=== PATIENT | female | born 1965 | race Caucasian/White ===

== ENCOUNTER 2019-08-07 12:14 | Emergency (ER) | payer BC ==
--- NOTE | 2019-08-07 13:30 | EDM.PDOC ---
ED HPI GENERAL MEDICAL PROBLEM - General Chief Complaint: Cardiovascular Problem Stated Complaint: PALPATATIONS Time Seen by Provider: 08/07/19 12:20 Source of Information: Reports: Patient History Limitations: Reports: No Limitations - History of Present Illness Onset: Today Duration: Intermittent Location: Reports: Chest Quality: Reports: Pressure Severity: Moderate Improves with: Reports: None Worsens with: Reports: None Associated Symptoms: Reports: Nausea/Vomiting (Presents with palpitations. She had a history of palpitations when she was younger and had been on a beta- pari. This seemed to have helped her however she discontinued this for many years now. She comes in today having noted increasing frequency of palpitations. Noted at some yesterday and then some this morning. Associated with any activity or exercise more randomly when she is at rest. He had her daughter check her pulse this afternoon and noted that it was irregular when she noted the palpitations therefore comes in for evaluation. Patient is followed by her primary care physician Dr. Vanegas and had a work-up and evaluation in April. Does have family history cardiovascular disease. Father with a history of mitral valve disease and during open heart surgery when he was in his 80s, has had a sibling with heart problems. Sister with a history of abnormal heart rhythm requiring ablative therapy. Has had a cough off and on weeks ago but has resolved. I had intermittent headaches but have resolved. Yesterday did have a abnormal smell or taste but better today. Had some loose stool today although notes that when she has her menstrual cycle. He obvious contact with any ill people, is trying to stay at home. No increasing work of breathing shortness of breath diaphoresis fevers chills or muscle aches. I rescreened in April and was negative take vitamins and natural supplements but nothing new, she denies any illegal drug use, very rare alcohol intake, does not smoke and does drink a few cups of coffee a day.) - Related Data Allergies Allergy/AdvReac Type Severity Reaction Status Date / Time ciprofloxacin [From Cipro] Allergy Headache Verified 08/07/19 12:26 esomeprazole magnesium Allergy Cannot Verified 08/07/19 12:26 [From Nexium] Remember sulfamethoxazole Allergy Cannot Verified 08/07/19 12:26 [From Bactrim] Remember trimethoprim [From Bactrim] Allergy Cannot Verified 08/07/19 12:26 Remember Home Meds: Home Meds Orphenadrine [Norflex] 1 tab PO Q12H PRN #14 tab 12/25/18 [Rx] Vitamins And Supplements. 12/25/18 [History] Magnesium Amino Acid Chelate [Magnesium] 100 mg PO DAILY #30 tablet 08/07/19 [Rx ] Potassium Chloride [Klor-Con 10] 10 meq PO DAILY #30 tab.er 08/07/19 [Rx] Past Medical History - Past Health History Medical/Surgical History: Denies Medical/Surgical History Cardiovascular History: Reports: High Cholesterol Gastrointestinal History: Reports: PUD, Other (See Below) Other Gastrointestinal History: Gallbladder attacks Genitourinary History: Reports: Urinary Incontinence Musculoskeletal History: Reports: Arthritis Endocrine/Metabolic History: Reports: Hypothyroidism - Past Surgical History GI Surgical History: Reports: EGD Social & Family History - Tobacco Use Smoking Status *Q: Never Smoker Second Hand Smoke Exposure: No - Caffeine Use Caffeine Use: Reports: Coffee - Recreational Drug Use Recreational Drug Use: No - Living Situation & Occupation Living situation: Reports: , with Spouse, with Family (5 kids) Occupation: Unemployed ED ROS GENERAL - Review of Systems Review Of Systems: See Below Constitutional: Denies: Fever, Chills, Weakness, Night Sweats, Diaphoresis, Decreased Appetite HEENT: Reports: No Symptoms. Denies: Rhinitis, Throat Pain Respiratory: Denies: Shortness of Breath, Pleuritic Chest Pain Cardiovascular: Reports: Palpitations. Denies: Chest Pain, Dyspnea on Exertion , Lightheadedness, Orthopnea, Syncope Endocrine: Reports: No Symptoms GI/Abdominal: Reports: Diarrhea, Decreased Appetite, Nausea. Denies: Vomiting : Denies: Dysuria Musculoskeletal: Denies: Neck Pain, Arm Pain Skin: Reports: No Symptoms Neurological: Denies: Dizziness, Headache, Numbness, Paresthesia, Tingling Psychiatric: Reports: No Symptoms Immunologic: Reports: No Symptoms ED EXAM, GENERAL - Physical Exam Exam: See Below Exam Limited By: No Limitations General Appearance: Alert, WD/WN, No Apparent Distress Throat/Mouth: Normal Inspection Head: Atraumatic Neck: Normal Inspection. No: Carotid Bruit Respiratory/Chest: No Respiratory Distress, Lungs Clear, No Accessory Muscle Use Cardiovascular: Normal Peripheral Pulses, Regular Rate, Rhythm, No Edema, No JVD , No Murmur, Other. No: JVD Peripheral Pulses: 2+: Radial (L), Radial (R) GI/Abdominal: Normal Bowel Sounds, Soft, Non-Tender, No Organomegaly Back Exam: Normal Inspection Extremities: Normal Inspection, Non-Tender, No Pedal Edema Neurological: Alert, Oriented, CN II-XII Intact, No Motor/Sensory Deficits Psychiatric: Normal Affect Skin Exam: Warm, Dry EKG INTERPRETATION EKG Date: 08/07/19 Rhythm: NSR (Due to her EKG and is so signed over I reviewed EKG showing sinus rhythm rate of 81 MA 150 QRS 91 QT corrected 448, RSR prime in lead V1 and V2, no Brugada signs or symptoms, no prolonged QT syndrome no short MA or delta waves noted. Ischemic changes noted.) Course - Vital Signs Last Recorded V/S: Last Vital Signs Temp 97.2 F 08/07/19 12:22 Pulse 90 08/07/19 12:22 Resp 12 08/07/19 12:22 BP 143/61 H 08/07/19 12:22 Pulse Ox 100 08/07/19 12:22 - Orders/Labs/Meds Orders: Active Orders 24 hr Category Date Time Status EKG Documentation Completion [RC] STAT Care 08/07/19 12:44 Active Labs: Laboratory Tests 08/07/19 08/07/19 Range/Units 13:08 13:08 WBC 4.82 (3.98-10.04) K/mm3 RBC 4.18 (3.98-5.22) M/mm3 Hgb 10.4 L D (11.2-15.7) gm/dl Hct 34.6 (34.1-44.9) % MCV 82.8 D (79.4-94.8) fl MCH 24.9 L (25.6-32.2) pg MCHC 30.1 L (32.2-35.5) g/dl RDW Std Deviation 51.8 H (36.4-46.3) fL Plt Count 307 D (182-369) K/mm3 MPV 10.0 (9.4-12.3) fl Neut % (Auto) 59.1 (34.0-71.1) % Lymph % (Auto) 30.9 (19.3-51.7) % [place] % (Auto) 7.7 (4.7-12.5) % Eos % (Auto) 1.5 (0.7-5.8) Baso % (Auto) 0.6 (0.1-1.2) % Neut # (Auto) 2.85 (1.56-6.13) K/mm3 Lymph # (Auto) 1.49 (1.18-3.74) K/mm3 [place] # (Auto) 0.37 H (0.24-0.36) K/mm3 Eos # (Auto) 0.07 (0.04-0.36) K/mm3 Baso # (Auto) 0.03 (0.01-0.08) K/mm3 Sodium 142 (136-145) mEq/L Potassium 3.3 L (3.5-5.1) mEq/L Chloride 108 H (98-107) mEq/L Carbon Dioxide 23 (21-32) mEq/L Anion Gap 14.3 (5-15) BUN 10 (7-18) mg/dL Creatinine 0.8 (0.55-1.02) mg/dL Est Cr Clr Drug Dosing 75.26 mL/min Estimated GFR (MDRD) > 60 (>60) mL/min BUN/Creatinine Ratio 12.5 L (14-18) Glucose 151 H (74-106) mg/dL Calcium 8.6 (8.5-10.1) mg/dL Magnesium 1.7 L (1.8-2.4) mg/dl Total Bilirubin 0.2 (0.2-1.0) mg/dL AST 11 L (15-37) U/L ALT 23 (14-59) U/L Alkaline Phosphatase 67 (46-116) U/L Total Protein 7.0 (6.4-8.2) g/dl Albumin 3.4 (3.4-5.0) g/dl Globulin 3.6 gm/dL Albumin/Globulin Ratio 0.9 L (1-2) - Radiology Interpretation Free Text/Narrative:: Chest x-ray reviewed with radiology and is unremarkable. - Re-Assessments/Exams Free Text/Narrative Re-Assessment/Exam: 08/07/19 13:34 Patient has symptomatic what looks like PACs. There is no ventricular complexes that are irregular, no signs of any Brugada criteria or prolonged QT syndrome or short MA intervals on her EKG. Suspect patient may benefit from an echocardiogram, will screen her labs to include her electrolytes magnesium and thyroid is already been screened, blood count, chest x-ray. 08/07/19 13:35 Hemoglobin is 10.4 hematocrit is 34.6 MCV is 82 MCH is 24.9 platelet count 307, 000 she has a white count of 4800, 08/07/19 13:55 42 potassium 3.3 chloride 108 BUN is 10 creatinine 0.8 glucose 151 magnesium 1.7 AST 11 Departure - Departure Time of Disposition: 14:09 Disposition: Home, Self-Care 01 Condition: Good Clinical Impression: Palpitations, Hypokalemia, Hypomagnesemia Anemia Qualifiers: Anemia type: unspecified type Qualified Code(s): D64.9 - Anemia, unspecified Instructions: Anemia, Palpitations, Hypomagnesemia, Hypokalemia Referrals: Frank Chi MD [Primary Care Provider] - Forms: ED Department Discharge Additional Instructions: Recommend follow-up with your primary provider and consider outpatient echocardiogram, work-up and evaluation for your anemia as this may be some of the etiology of your palpitations. Sepsis Event Note - Evaluation Sepsis Screening Result: No Definite Risk - Focused Exam Vital Signs: Vital Signs Temp Pulse Resp BP Pulse Ox 08/07/19 12:22 97.2 F 90 12 143/61 H 100 Date Exam was Performed: 08/07/19 Time Exam was Performed: 14:06 - My Orders Last 24 Hours: My Active Orders 08/07/19 12:44 EKG Documentation Completion [RC] STAT - Assessment/Plan Last 24 Hours: My Active Orders 08/07/19 12:44 EKG Documentation Completion [RC] STAT
--- NOTE | 2019-08-07 13:30 | CR ---
Chest: 2 views of the chest were obtained. Comparison: Prior chest x-ray of 07/31/13. Heart size and mediastinum are normal. Lungs are clear. Minimal scoliosis is noted within the spine. Impression: 1. Nothing acute is seen on 2 view chest x-ray. Diagnostic code #2 Study was dictated in MDT
[2019-08-07 14:42] VITALS: BP 116/53; PULSE 79
== END 2019-08-07 14:42 | disposition home or self-care (01) ==
LOC: JD.ED 12:14
DX: E87.6 Hypokalemia (principal); E83.42 Hypomagnesemia; D64.9 Anemia, unspecified; Z88.1 Allergy status to other antibiotic agents; Z88.2 Allergy status to sulfonamides; Z88.8 Allergy status to other drugs, medicaments and biological substances
CPT/HCPCS: 36415; 71046; 71046-26; 80053; 83735; 85025; 93005; 93010; 99283; 99285-25

== ENCOUNTER → 2019-11-08 | Day surgery (SDC) | payer BC ==
[~2019-11-08] MED LIST: Acetaminophen/HYDROcodone 325-5 MG Tab PO PRN; Bupivacaine 0.5%/EPINEPHrine 1:200,000 50 ML MDV ONE; HYDROmorphone 0.5 MG/0.5 ML Syringe ONE; Ketorolac 30 MG/ML SDV ONE; Lactated Ringers 1,000 ML IV SCH; Lactated Ringers 1,000 ML ONE; Lidocaine 1% 6 ML ONE; Lidocaine 1% with EPINEPHrine 1:100,000 20 ML MDV ONE; Lidocaine 1%/Sod Bicarbonate in NS 8.4% 1 ML Syringe IDERM PRN; Midazolam 1 MG/ML 2 ML SDV ONE; Ondansetron 4 MG/2 ML SDV ONE; Propofol 200 MG/20 ML SDV ONE; Rocuronium 50 MG/5 ML Vial ONE; Sodium Chloride 0.9% 10 ML Syringe FLUSH PRN; Succinylcholine/Sod PF 100 MG/5 ML SYRINGE IV ONE; ceFAZolin 1 GM Vial ONE; diphenhydrAMINE 50 MG/ML SDV ONE; fentaNYL 100 MCG/2 ML SDV IVPUSH PRN; fentaNYL 250 MCG/5 ML SDV ONE
[2019-11-08 12:30] VITALS: PULSE 77
--- NOTE | 2019-11-08 12:31 | PCM.PREANE ---
Preanesthetic Assessment - Procedure Proposed Procedure: delfino - Anesthesia/Transfusion/Family Hx Anesthesia History: Prior Anesthesia Without Reaction Family History of Anesthesia Reaction: No Transfusion History: No Prior Transfusion(s) - Review of Systems General: Weakness (so bloated and doesn't do anything) Pulmonary: No Symptoms Cardiovascular: Palpitations, Lightheadedness (past week had a headache and dizzy) Gastrointestinal: Abdominal Pain, Nausea (gets gas with gallbladder issues) Neurological: No Symptoms Other: Reports: Thyroid Problems (ok n0w- was on meds a while back), Neck Pain (other night- stems from accident), Anxiety - Physical Assessment NPO Status Date: 11/07/19 NPO Status Time: 23:30 Vital Signs: 133/76 77 99% 20 99.2 Height: 5 ft 6 in Weight: 66 kg ASA Class: 2 Mental Status: Alert & Oriented x3 Airway Class: Mallampati = 1 Dentition: Reports: Normal Dentition, Bridge (wires in mouth behind teeth after braces) Thyro-Mental Finger Breadths: 3 Mouth Opening Finger Breadths: 3 ROM/Head Extension: Full Lungs: Clear to Auscultation, Normal Respiratory Effort Cardiovascular: Regular Rate, Regular Rhythm - Lab Values: Laboratory Last Values COVID-19 ([facility]) Negative (NEGATIVE) 11/08/19 11:10 - Allergies Allergies/Adverse Reactions: Allergies Allergy/AdvReac Type Severity Reaction Status Date / Time ciprofloxacin [From Cipro] Allergy Headache Verified 08/07/19 12:26 esomeprazole magnesium Allergy Cannot Verified 08/07/19 12:26 [From Nexium] Remember sulfamethoxazole Allergy Cannot Verified 08/07/19 12:26 [From Bactrim] Remember trimethoprim [From Bactrim] Allergy Cannot Verified 08/07/19 12:26 Remember - Blood Blood Available: No - Acknowledgements Anesthesia Type Planned: General Anesthesia Pt an Appropriate Candidate for the Planned Anesthesia: Yes Alternatives and Risks of Anesthesia Discussed w Pt/Guardian: Yes Pt/Guardian Understands and Agrees with Anesthesia Plan: Yes PreAnesthesia Questionnaire - Past Health History Medical/Surgical History: Denies Medical/Surgical History Cardiovascular History: Reports: High Cholesterol Respiratory History: Reports: None Gastrointestinal History: Reports: GERD, PUD, Other (See Below) Other Gastrointestinal History: Gallbladder attacks Genitourinary History: Reports: Urinary Incontinence Musculoskeletal History: Reports: Arthritis Endocrine/Metabolic History: Reports: Hypothyroidism - Past Surgical History GI Surgical History: Reports: EGD - History Comment History Comment: off k+ - SUBSTANCE USE Smoking Status *Q: Former Smoker Tobacco Use Within Last Twelve Months: No Second Hand Smoke Exposure: No Days Per Week of Alcohol Use: 1 (rarely) Number of Drinks Per Day: 1 Total Drinks Per Week: 1 Recreational Drug Use History: No - HOME MEDS Home Medications: Home Meds Orphenadrine [Norflex] 1 tab PO Q12H PRN #14 tab 12/25/18 [Rx] Vitamins And Supplements. 12/25/18 [History] Magnesium Amino Acid Chelate [Magnesium] 100 mg PO DAILY #30 tablet 08/07/19 [Rx] Potassium Chloride [Klor-Con 10] 10 meq PO DAILY #30 tab.er 08/07/19 [Rx] - CURRENT (IN HOUSE) MEDS Current Meds: Current Medications Lactated Ringer's (Ringers, Lactated) 1,000 mls @ 125 mls/hr IV ASDIRECTED RUDI Stop: 11/08/19 23:00 Lidocaine/Sodium Bicarbonate (Buffered Lidocaine 1% In Ns 8.4%) 0.25 ml IDERM ONETIME PRN PRN Reason: Prior to IV Start Stop: 11/08/19 18:00 Sodium Chloride (Saline Flush) 10 ml FLUSH ASDIRECTED PRN PRN Reason: Keep Vein Open Stop: 11/08/19 18:00
--- NOTE | 2019-11-08 14:50 | PCM.OPNOTE ---
- General Post-Op/Procedure Note Date of Surgery/Procedure: 11/08/19 Operative Procedure(s): laparoscopic cholecystectomy Findings: gallbladder with filmy adhesions to surrounding structures Pre Op Diagnosis: biliary dyskinesia Post-Op Diagnosis: same Anesthesia Technique: General ET Tube Primary Surgeon: Abida Rock Anesthesia Provider: Sachin Walsh Pathology: gallbladder with contents Fluid Replacement, Intraop: 2,000 Output, Urine Amount: 0 EBL in mLs: 5 Complications: none apparent Condition: Good
--- NOTE | 2019-11-08 14:51 | PCM.PRNOTE ---
- Free Text/Narrative Note: OPERATIVE REPORT Date of Surgery/Procedure: November 08, 2019 Operative Procedure(s): laparoscopic cholecystectomy Findings: gallbladder with filmy adhesions to surrounding structures Pre Op Diagnosis: Biliary dyskinesia Post-Op Diagnosis: Same Anesthesia Technique: General ET Tube Primary Surgeon: Abida Rock MD Anesthesia Provider: Sachin Walsh CRNA Pathology: Gallbladder with contents Fluid Replacement, Intraop: 2000cc Output, Urine Amount: 0cc EBL: 5cc Drain/Tube Comments: none Indication for the procedure: The patient is a 54-year-old lady who presented to my office with persistent RUQ abdominal pain. This has been ongoing and intermittent for 20 years, but acutely worsened in the last week. She has been unable to eat much due to pain. The patient was counseled for laparoscopic cholecystectomy, with possible conversion to open. After discussion of the risks of infection, bleeding and injury to the bile duct as well as increased complication from previous intra-abdominal surgery, the patient's consent was obtained. Description of the procedure: The patient presented to the outpatient holding area on the day of the procedure. The history and physical were verified and consent was present and on the chart. The patient was taken back to the operating room and placed in supine position on the operating table. SCD boots were placed and functional prior to the start of the procedure. Preoperative antibiotics were administered according to SCIP protocol, Ancef 2 g IV. A s urgical timeout was performed. The patient then had induction of general anesthesia and was intubated without difficulty. The patient was prepped and draped in standard surgical fashion. We began by making an infraumbilical vertical incision and deepened this down through subcutaneous fat to the level of the fascia. This was grasped and incised. We bluntly entered through the peritoneum and a finger sweep was done. A stay suture of 0 Vicryl was placed in the fascia. The 12 mm balloon Ellison port was then inserted into the abdomen and the balloon inflated. Insufflation was attached and we had appropriate opening pressures. The abdomen was then insufflated to 15 mmHg. We inserted a scope into the abdomen and inspected the area where we had entered. There was no evidence of injury to surrounding structures with no evidence of bile or bleeding. A TAP block was then performed using 1% lidocaine with epinephrine mixed with 0.5% bupivacaine with epinephrine. We then proceeded with placing our additional ports. A 5mm port was placed in the epigastric region. Two additional 5mm ports placed under direct visualization in the right upper quadrant. The patient was then positioned with head up and right side up to facilitate exposure of the gallbladder. Once we had sufficiently exposed the dome of the gallbladder. This was grasped and retracted cephalad. We proceeded with our dissection to expose the cystic duct and cystic artery. We did have a critical view. The cystic duct and artery were then clipped and cut using endoscopic scissors. We then proceeded to fully dissect the gallbladder off of the cystic plate using the Bovie device. The gallbladder was then placed in the Endo Catch bag and withdrawn towards the umbilical port. During mobilization of the gallbladder, the clip on the cystic duct was dislodged spilling bile out of the gallbladder into the abdomen. We then inspected the area of the dissection. There was no significant bleeding and hemostasis was achieved during dissection. Ray-Jorge's were used to mop up the spilled bile. We then desufflated the abdomen. The ports were then removed. The gallbladder was withdrawn through the umbilical port site. We then proceeded to close the umbilical port site using an 0 Vicryl stitch. We had good closure of the fascia. A superficial 4-0 monocryl suture was used to approximate the skin. The skin was covered with Dermabond surgical glue. The patient tolerated the procedure well and was extubated without difficulty. He was transported to the PACU in stable condition. All sponge, needle counts correct. I was scrubbed and actively participated in the entire procedure. No immediate complications noted. Complications: None apparent Condition: Good Abida Rock MD General Surgery
--- NOTE | 2019-11-08 15:24 | PCM.POSTAN ---
POST ANESTHESIA ASSESSMENT - MENTAL STATUS Mental Status: Somnolent - VITAL SIGNS Vital Signs: Last Vital Signs Temp 97.2 F 11/08/19 15:20 Pulse 77 11/08/19 11:53 Resp 10 L 11/08/19 15:20 BP 132/74 11/08/19 15:20 Pulse Ox 100 11/08/19 15:20 - RESPIRATORY Respiratory Status: Respiratory Rate WNL, Airway Patent, O2 Saturation Stable - CARDIOVASCULAR CV Status: Pulse Rate WNL, Blood Pressure Stable - GASTROINTESTINAL GI Status: No Symptoms - PAIN Pain Score: 0 - POST OP HYDRATION Hydration Status: Adequate & Stable
--- NOTE | 2019-11-08 15:47 | PCM48HPAN ---
Post Anesthesia Note - EVALUATION WITHIN 48HRS OF ANESTHETIC Vital Signs in Normal Range: Yes Patient Participated in Evaluation: Yes Respiratory Function Stable: Yes Airway Patent: Yes Cardiovascular Function Stable: Yes Hydration Status Stable: Yes Pain Control Satisfactory: Yes Nausea and Vomiting Control Satisfactory: Yes Mental Status Recovered: Yes Vital Signs: Last Vital Signs Temp 97.2 F 11/08/19 15:37 Pulse 77 11/08/19 11:53 Resp 12 11/08/19 15:37 BP 152/87 H 11/08/19 15:37 Pulse Ox 100 11/08/19 15:37 - COMMENTS/OBSERVATIONS Free Text/Narrative:: No anesthesia complications observed. Patient going to be transferred to the Medical Surgical floor for an extended recovery prior to home discharge.
[2019-11-08] MEDS: HYDROmorphone 0.5 MG/0.5 ML Syringe IVPUSH PRN ×2 (15:49→16:08)
[2019-11-08 17:22] VITALS: BP 159/111
== END | disposition home or self-care (01) ==
LOC: JD.SDS 11:56
PROVIDERS: ATTEND Surgery
DX: K82.8 Other specified diseases of gallbladder (principal); K66.0 Peritoneal adhesions (postprocedural) (postinfection); I49.3 Ventricular premature depolarization; E78.00 Pure hypercholesterolemia, unspecified; K21.9 Gastro-esophageal reflux disease without esophagitis; E03.9 Hypothyroidism, unspecified; Z11.59 Encounter for screening for other viral diseases; Z79.899 Other long term (current) drug therapy; Z88.2 Allergy status to sulfonamides; Z88.1 Allergy status to other antibiotic agents; Z87.891 Personal history of nicotine dependence
CPT/HCPCS: 47562; 81025; 87635; J0330; J0690; J1170; J1200; J1885; J2001; J2250; J2405; J2704; J2710; J3010; J3490; J7120; 00790; U0002

== ENCOUNTER 2019-11-10 16:57 | Emergency (ER) | payer BC ==
[2019-11-10 17:08] VITALS: BP 109/77; PULSE 90
[2019-11-10] MEDS ORDERED: Sodium Chloride 0.9% 10 ML Syringe FLUSH PRN (17:29)
[2019-11-10] MEDS ORDERED: Alum Hydrox/Mag Hydrox/Simeth 30 ML, Lidocaine 2% 15 ML PO ONE ×2 (17:35)
--- NOTE | 2019-11-10 17:36 | EDM.PDOC ---
ED HPI GENERAL MEDICAL PROBLEM - General Chief Complaint: Respiratory Problem Stated Complaint: SOB - POST OP Time Seen by Provider: 11/10/19 17:15 Source of Information: Reports: Patient, Old Records (surgical note from Dr. Francisco), RN Notes Reviewed History Limitations: Reports: No Limitations - History of Present Illness INITIAL COMMENTS - FREE TEXT/NARRATIVE: Patient is a 54-year-old female who presents to the ED for her sudden onset shortness of breath. Patient notes that she did have a laparoscopic cholecystectomy performed by Dr. Francisco, on November 08, 2019. She notes that the surgeon states that the surgery went well, there were no complications. Patient states she felt well yesterday, had a sensation of mild shortness of breath. This continued throughout today, but seem to worsen all of a sudden 1 hour ago, she also does note a generalized annoying dry cough as well since this morning. She states she took her hydrocodone 1 hour ago, and this seems to be helping with the pain. She has not had any fevers at home, but does complain of being very gassy, having some chills, epigastric/right upper quadrant abdominal pain that seems to shoot through to the back. She notes that pain is stabbing/crampy, and also dull/achy in nature at times. Patient has had good bowel movements, and is urinating okay as well. She further denies any nausea/vomiting/diarrhea. Patient states she does have a history of reflux, but does use Tums and apple cider vinegar for this. Patient was swabbed for COVID prior to surgery, and it was negative prior to surgery. Patient notes she is not been anywhere after the surgery. O2 sats at time of triage are 100% on room air, blood pressure is 109/77, respiratory rate 18 breaths/min, temperature is 97.5 F, and her pulse rate is 90 bpm. Abdomen Pain Score (Numeric/FACES): 4 - Related Data Allergies Allergy/AdvReac Type Severity Reaction Status Date / Time esomeprazole magnesium Allergy Cannot Verified 11/10/19 17:08 [From Nexium] Remember sulfamethoxazole Allergy Cannot Verified 11/10/19 17:08 [From Bactrim] Remember trimethoprim [From Bactrim] Allergy Cannot Verified 11/10/19 17:08 Remember ciprofloxacin [From Cipro] AdvReac Headache Verified 11/10/19 17:08 Home Meds: Home Meds Orphenadrine [Norflex] 1 tab PO Q12H PRN #14 tab 12/25/18 [Rx] Acetaminophen/HYDROcodone [[place] 325-5 MG] 1 tab PO Q4H PRN 14 Days #20 tablet 11/08/19 [Rx] Calcium Carbonate [Tums] 3 tab PO ASDIRECTED PRN 11/08/19 [History] Digestive 8/L.acidoph/Pectin [Digestive Enzymes Tablet] 2 tab PO QPM 11/08/19 [History] Docusate Sodium [Colace] 100 mg PO BID 20 Days #40 cap 11/08/19 [Rx] Doxylamine Succinate [Unisom] 25 mg PO QPM 11/08/19 [History] Ibuprofen 600 mg PO Q6H PRN 20 Days #60 tablet 11/08/19 [Rx] L.acidoph,Paracasei, B.lactis [Probiotic] 2 cap PO DAILY 11/08/19 [History] MV,Ca,Min/FA/Herbal Comp #223 [Estroven Mood and Memory Cplt] 1 tab PO DAILY 11/08/19 [History] Magnesium Citrate 2 tab PO DAILY 11/08/19 [History] Magnesium Gluconate 1 tab PO DAILY 11/08/19 [History] Melatonin 5 - 10 mg PO QPM PRN 11/08/19 [History] Multivitamin [Multivitamins] 1 each PO DAILY 11/08/19 [History] Non-Formulary Medication [NF Drug] 2 tsp PO QPM 11/08/19 [History] Non-Formulary Medication [NF Drug] 5 drop PO BID 11/08/19 [History] Non-Formulary Medication [NF Drug] 5 drop PO TID 11/08/19 [History] Vitamin B Complex [B Complex] 1 each PO DAILY 11/08/19 [History] Zolpidem Tartrate [Ambien] 1 tab PO QPM PRN 11/08/19 [History] Past Medical History Cardiovascular History: Reports: High Cholesterol Other Cardiovascular History: hypotension, palpatations, preventricular contractions, irregular HR Gastrointestinal History: Reports: GERD, PUD Genitourinary History: Reports: Urinary Incontinence 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 - Past Surgical History GI Surgical History: Reports: Cholecystectomy, EGD - History Comment History Comment: off k+ Social & Family History - Family History Family Medical History: Noncontributory - Tobacco Use Smoking Status *Q: Former Smoker Used Tobacco, but Quit: Yes Month/Year Tobacco Last Used: 1989 - Caffeine Use Caffeine Use: Reports: Coffee Caffeine Use Comment: reports minimal coffee drinking since August 2019 - Recreational Drug Use Recreational Drug Use: No - Living Situation & Occupation Living situation: Reports: , with Spouse, with Family (5 kids) Occupation: Unemployed ED ROS GENERAL - Review of Systems Review Of Systems: See Below Constitutional: Reports: Chills. Denies: Fever Respiratory: Reports: Shortness of Breath, Cough Cardiovascular: Denies: Chest Pain GI/Abdominal: Reports: Abdominal Pain (RUQ/epigastri), Flatus. Denies: Constipation, Diarrhea, Distension, Nausea, Vomiting : Denies: Dysuria ED EXAM, GENERAL - Physical Exam Exam: See Below Exam Limited By: No Limitations General Appearance: Alert, WD/WN, No Apparent Distress Throat/Mouth: Normal Inspection, Normal Lips, Normal Teeth, Normal Gums, Normal Oropharynx, Normal Voice, No Airway Compromise Head: Atraumatic, Normocephalic Neck: Normal Inspection Respiratory/Chest: No Respiratory Distress, Lungs Clear, Normal Breath Sounds, No Accessory Muscle Use, Chest Non-Tender Cardiovascular: Normal Peripheral Pulses, Regular Rate, Rhythm, No Murmur GI/Abdominal: Normal Bowel Sounds, Soft, No Distention, No Mass, Tender (slight tenderness over the laprascopic surgical incisions, mild bruising noted to these areas.) Extremities: Normal Inspection, Normal Capillary Refill Neurological: Alert, Oriented, Normal Cognition, No Motor/Sensory Deficits Psychiatric: Normal Affect, Normal Mood Skin Exam: Warm, Dry, Intact, No Rash, Ecchymosis (Slight ecchymosis noted over the 3 laparoscopic surgical incisions. Slight tenderness around these areas, but she does point to her right upper quadrant/epigastric region as a focal area of pain.) Course - Vital Signs Last Recorded V/S: Last Vital Signs Temp 97.5 F 11/10/19 17:04 Pulse 90 11/10/19 17:04 Resp 18 11/10/19 17:04 BP 109/77 11/10/19 17:04 Pulse Ox 100 11/10/19 17:04 - Orders/Labs/Meds Orders: Active Orders 24 hr Category Date Time Status Incentive Spirometry [RT Incentive Spirometry] [RC] Care 11/10/19 18:12 Ordered Q1HWA Peripheral IV Care [RC] . DIRECTED Care 11/10/19 17:29 Ordered Chest 2V [CR] Stat Exams 11/10/19 17:27 Ordered Sodium Chloride 0.9% [Saline Flush] Med 11/10/19 17:29 Ordered 10 ml FLUSH ASDIRECTED PRN Peripheral IV Insertion Adult [OM.PC] Routine Oth 11/10/19 17:29 Ordered Medication Orders Sodium Chloride (Saline Flush) 10 ml FLUSH ASDIRECTED PRN PRN Reason: Keep Vein Open Last Admin: 11/10/19 17:10 Dose: 10 ml Documented by: BENJAMÍN Labs: Laboratory Tests 11/10/19 11/10/19 Range/Units 17:10 17:10 WBC 7.34 (3.98-10.04) K/mm3 RBC 4.70 (3.98-5.22) M/mm3 Hgb 13.7 D (11.2-15.7) gm/dl Hct 41.8 (34.1-44.9) % MCV 88.9 D (79.4-94.8) fl MCH 29.1 (25.6-32.2) pg MCHC 32.8 (32.2-35.5) g/dl RDW Std Deviation 49.8 H (36.4-46.3) fL Plt Count 248 (182-369) K/mm3 MPV 10.6 (9.4-12.3) fl Neut % (Auto) 46.8 (34.0-71.1) % Lymph % (Auto) 44.4 (19.3-51.7) % Miner % (Auto) 7.4 (4.7-12.5) % Eos % (Auto) 1.0 (0.7-5.8) Baso % (Auto) 0.4 (0.1-1.2) % Neut # (Auto) 3.44 (1.56-6.13) K/mm3 Lymph # (Auto) 3.26 (1.18-3.74) K/mm3 Miner # (Auto) 0.54 H (0.24-0.36) K/mm3 Eos # (Auto) 0.07 (0.04-0.36) K/mm3 Baso # (Auto) 0.03 (0.01-0.08) K/mm3 Sodium 141 (136-145) mEq/L Potassium 3.4 L (3.5-5.1) mEq/L Chloride 102 (98-107) mEq/L Carbon Dioxide 26 (21-32) mEq/L Anion Gap 16.4 H (5-15) BUN 8 (7-18) mg/dL Creatinine 1.0 (0.55-1.02) mg/dL Est Cr Clr Drug Dosing 57.20 mL/min Estimated GFR (MDRD) 58 (>60) mL/min BUN/Creatinine Ratio 8.0 L (14-18) Glucose 121 H (74-106) mg/dL Calcium 9.5 (8.5-10.1) mg/dL Total Bilirubin 0.3 (0.2-1.0) mg/dL AST 56 H (15-37) U/L ALT 61 H (14-59) U/L Alkaline Phosphatase 76 (46-116) U/L Total Protein 7.9 (6.4-8.2) g/dl Albumin 4.1 (3.4-5.0) g/dl Globulin 3.8 gm/dL Albumin/Globulin Ratio 1.1 (1-2) Meds: Medications Generic Name Dose Route Start Last Admin Trade Name Freq PRN Reason Stop Dose Admin Sodium Chloride 10 ml 11/10/19 17:29 11/10/19 17:10 Saline Flush FLUSH 10 ml ASDIRECTED PRN Administration Keep Vein Open Discontinued Medications Generic Name Dose Route Start Last Admin Trade Name Freq PRN Reason Stop Dose Admin Al Hydroxide/Mg Hydroxide 30 0 ml 11/10/19 17:35 11/10/19 17:39 ml/ Lidocaine HCl 15 ml PO 11/10/19 17:36 45 ml ONETIME ONE Administration - Re-Assessments/Exams Free Text/Narrative Re-Assessment/Exam: 11/10/19 17:44 Patient presents to the ED for evaluation of her shortness of breath post s urgery. Have ordered a CBC and CMP, for management along with a GI cocktail as I do believe patient suffering from some GERD type issues as well. She notes she does not take any sort of PPI. She was questioning whether or not the hydrocodone is causing these issues, and this very well could be. Did discuss options with her regarding different pain management. Will likely still consult Dr. Francisco as this is only 2 days postop surgical management. 11/10/19 17:48 Labs are essentially within normal limits. Potassium is mildly low at 3.4, but should be corrected easily by diet. There are no worrisome abnormalities appreciated on today's labs. 11/10/19 18:13 Chest x-ray demonstrates no worrisome abnormalities. She does have some free air under the diaphragm, I did discuss the case with Dr. Francisco and again she had a lap curt, so this is an acceptable amount of free air. Dr. Francisco was okay with her clinical presentation and states to send her home with an incentive spirometer. I did talk with Dr. Sims about the possibility of a pulmonary embolus, but I do not believe she fits this picture clinically, so we will not test her for a PE at this time. Dr. Francisco was also okay with this plan. Departure - Departure Time of Disposition: 18:14 Disposition: Home, Self-Care 01 Condition: Good Clinical Impression: Status post cholecystectomy, Acute dyspnea - Discharge Information *PRESCRIPTION DRUG MONITORING PROGRAM REVIEWED*: No *COPY OF PRESCRIPTION DRUG MONITORING REPORT IN PATIENT DENITA: No Instructions: Laparoscopic Cholecystectomy, Care After, [id number] Referrals: Frank Chi MD [Primary Care Provider] - Forms: ED Department Discharge Additional Instructions: You were evaluated in the ER today for your shortness of breath after your laparoscopic surgery done 2 days ago. You had some labs, and a chest x-ray done at today's visit, everything is within normal limits. Chest x-ray does demonstrate a little bit of free air under the diaphragm, but this should reabsorb itself, as it is common to have a small amount of free air in this area after laparoscopic surgery. This is part of the issues causing you pain, and until it reabsorbs you may still have pain. Recommend you can take 500 mg Tylenol or 6 mg ibuprofen every 6 hours as needed for further pain relief. Do not exceed 4000 mg Tylenol or 3200 mg ibuprofen in a 24-hour time span. You were given an incentive spirometer, please do 10 inhalations/h while awake, this will help prevent pneumonia and low O2 sats. You may obtain a pulse oximeter, at any retail place like [employer], or purchase online at a place like [employer]. You were given instructions on how to use this. Please try to sit in a calm, quiet setting for at least a minute before checking the numbers on the pulse oximeter. Anywhere between 92 to 100% on room air is completely fine. Recommend you try to get up as much as possible, to expel some of the gas in her abdomen, this should also make your pain feel better. Please return to the ER at any time if your symptoms change or worsen. Sepsis Event Note (ED) - Evaluation Sepsis Screening Result: No Definite Risk - Focused Exam Vital Signs: Vital Signs Temp Pulse Resp BP Pulse Ox 11/10/19 17:04 97.5 F 90 18 109/77 100 - My Orders Last 24 Hours: My Active Orders 11/10/19 17:27 Chest 2V [CR] Stat 11/10/19 17:29 Peripheral IV Care [RC] . DIRECTED Sodium Chloride 0.9% [Saline Flush] 10 ml FLUSH ASDIRECTED PRN Peripheral IV Insertion Adult [OM.PC] Routine 11/10/19 18:12 Incentive Spirometry [RT Incentive Spirometry] [RC] Q1HWA - Assessment/Plan Last 24 Hours: My Active Orders 11/10/19 17:27 Chest 2V [CR] Stat 11/10/19 17:29 Peripheral IV Care [RC] . DIRECTED Sodium Chloride 0.9% [Saline Flush] 10 ml FLUSH ASDIRECTED PRN Peripheral IV Insertion Adult [OM.PC] Routine 11/10/19 18:12 Incentive Spirometry [RT Incentive Spirometry] [RC] Q1HWA
--- NOTE | 2019-11-13 06:12 | CR ---
Chest: PA and lateral views of the chest were obtained. Comparison: Prior chest x-ray of 08/07/19. Linear density noted within the right lung base raising the possibility of free air within the abdomen. Lungs are clear with no acute parenchymal change. Heart size and mediastinum are normal. Bony structures are unremarkable. Impression: 1. Free air beneath the right hemidiaphragm compatible with clinical history of 2 days postop laparoscopic cholecystectom. 2. Nothing acute is otherwise seen on 2 view chest x-ray. Diagnostic code #2 This report was dictated in MDT
== END 2019-11-10 18:30 | disposition home or self-care (01) ==
LOC: JD.ED 16:57
DX: R06.02 Shortness of breath (principal); Z90.49 Acquired absence of other specified parts of digestive tract; Z87.891 Personal history of nicotine dependence; Z88.1 Allergy status to other antibiotic agents; Z88.2 Allergy status to sulfonamides; Z88.8 Allergy status to other drugs, medicaments and biological substances
CPT/HCPCS: 36415; 71046; 80053; 85025; 99285; A9270; 99283

== ENCOUNTER 2019-11-20 20:32 | Emergency (ER) | payer BC ==
[2019-11-20 20:46] VITALS: BP 135/59; PULSE 78
--- NOTE | 2019-11-20 20:54 | EDM.PDOC ---
ED HPI GENERAL MEDICAL PROBLEM - General Chief Complaint: Abdominal Pain Stated Complaint: PAIN POST GALLBLADDER REMOVAL 12 DAYS AGO Time Seen by Provider: 11/20/19 20:54 - History of Present Illness INITIAL COMMENTS - FREE TEXT/NARRATIVE: 54-year-old female presents the emergency room with right upper quadrant pain. Patient is 12 days status post laparoscopic cholecystectomy to this point the patient really has not had any problems postoperatively she was doing really well. Wednesday the patient was very active Wednesday she rested quite a bit and today she has had this discomfort pretty much in the right upper quadrant. She is had some nausea no vomiting. No fevers no chills no pain radiating into her back. The patient thought she was really doing well postoperatively Until today. She denies any chest pain chest pressure or breathing difficulties or shortness of breath. Right Upper Abdomen Pain Score (Numeric/FACES): 8 - Related Data Allergies Allergy/AdvReac Type Severity Reaction Status Date / Time esomeprazole magnesium Allergy Severe Swollen Verified 11/20/19 20:46 [From Nexium] Tongue hydrocodone Allergy Severe Shortness Verified 11/20/19 20:46 of Breath sulfamethoxazole Allergy Severe Swollen Verified 11/20/19 20:46 [From Bactrim] Tongue trimethoprim [From Bactrim] Allergy Severe Swollen Verified 11/20/19 20:46 Tongue ciprofloxacin [From Cipro] AdvReac Severe Headache Verified 11/20/19 20:46 Home Meds: Home Meds Orphenadrine [Norflex] 1 tab PO Q12H PRN #14 tab 12/25/18 [Rx] Calcium Carbonate [Tums] 3 tab PO ASDIRECTED PRN 11/08/19 [History] Digestive 8/L.acidoph/Pectin [Digestive Enzymes Tablet] 2 tab PO QPM 11/08/19 [History] Docusate Sodium [Colace] 100 mg PO BID 20 Days #40 cap 11/08/19 [Rx] Doxylamine Succinate [Unisom] 25 mg PO QPM 11/08/19 [History] Ibuprofen 600 mg PO Q6H PRN 20 Days #60 tablet 11/08/19 [Rx] L.acidoph,Paracasei, B.lactis [Probiotic] 2 cap PO DAILY 11/08/19 [History] MV,Ca,Min/FA/Herbal Comp #223 [Estroven Mood and Memory Cplt] 1 tab PO DAILY 11/08/19 [History] Magnesium Citrate 2 tab PO DAILY 11/08/19 [History] Magnesium Gluconate 1 tab PO DAILY 11/08/19 [History] Melatonin 5 - 10 mg PO QPM PRN 11/08/19 [History] Multivitamin [Multivitamins] 1 each PO DAILY 11/08/19 [History] Non-Formulary Medication [NF Drug] 2 tsp PO QPM 11/08/19 [History] Non-Formulary Medication [NF Drug] 5 drop PO BID 11/08/19 [History] Non-Formulary Medication [NF Drug] 5 drop PO TID 11/08/19 [History] Vitamin B Complex [B Complex] 1 each PO DAILY 11/08/19 [History] Zolpidem Tartrate [Ambien] 1 tab PO QPM PRN 11/08/19 [History] Past Medical History - Past Health History Medical/Surgical History: Denies Medical/Surgical History Cardiovascular History: Reports: High Cholesterol Other Cardiovascular History: hypotension, palpatations, preventricular contractions, irregular HR Respiratory History: Reports: None Gastrointestinal History: Reports: GERD, PUD Other Gastrointestinal History: Gallbladder attacks Genitourinary History: Reports: Urinary Incontinence 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 - Past Surgical History GI Surgical History: Reports: Cholecystectomy, EGD - History Comment History Comment: off k+ Social & Family History - Family History Family Medical History: Noncontributory - Tobacco Use Smoking Status *Q: Former Smoker Used Tobacco, but Quit: Yes Month/Year Tobacco Last Used: 1988 - Caffeine Use Caffeine Use: Reports: Coffee Caffeine Use Comment: reports minimal coffee drinking since August 2019 - Recreational Drug Use Recreational Drug Use: No - Living Situation & Occupation Living situation: Reports: , with Spouse, with Family (5 kids) Occupation: Unemployed ED ROS GENERAL - Review of Systems Review Of Systems: See Below Constitutional: Reports: No Symptoms Respiratory: Reports: No Symptoms Cardiovascular: Reports: No Symptoms GI/Abdominal: Reports: Abdominal Pain, Nausea. Denies: No Symptoms, Constipation, Diarrhea, Vomiting : Reports: No Symptoms Musculoskeletal: Reports: No Symptoms Skin: Reports: No Symptoms Neurological: Reports: No Symptoms ED EXAM, GI/ABD - Physical Exam Exam: See Below Exam Limited By: No Limitations General Appearance: Alert, No Apparent Distress Head: Atraumatic, Normocephalic Neck: Normal Inspection, Supple, Non-Tender, Full Range of Motion Respiratory/Chest: No Respiratory Distress, Lungs Clear, Normal Breath Sounds Cardiovascular: Regular Rate, Rhythm, No Edema, No Murmur GI/Abdominal Exam: Normal Bowel Sounds, Soft, Other (Probable right upper q uadrant discomfort no distention no rebound no rigidity noted.) Back Exam: Normal Inspection. No: CVA Tenderness (L), CVA Tenderness (R) Neurological: Alert, Oriented, Normal Cognition Course - Vital Signs Last Recorded V/S: Last Vital Signs Temp 36.3 C 11/20/19 20:42 Pulse 78 11/20/19 20:42 Resp 18 11/20/19 20:42 BP 135/59 L 11/20/19 20:42 Pulse Ox 100 11/20/19 20:42 - Orders/Labs/Meds Labs: Laboratory Tests 11/20/19 11/20/19 Range/Units 21:25 21:25 WBC 6.00 (3.98-10.04) K/mm3 RBC 4.48 (3.98-5.22) M/mm3 Hgb 13.1 (11.2-15.7) gm/dl Hct 40.3 (34.1-44.9) % MCV 90.0 (79.4-94.8) fl MCH 29.2 (25.6-32.2) pg MCHC 32.5 (32.2-35.5) g/dl RDW Std Deviation 49.1 H (36.4-46.3) fL Plt Count 281 (182-369) K/mm3 MPV 9.8 (9.4-12.3) fl Neut % (Auto) 59.0 (34.0-71.1) % Lymph % (Auto) 29.0 (19.3-51.7) % Harris % (Auto) 7.8 (4.7-12.5) % Eos % (Auto) 3.5 (0.7-5.8) Baso % (Auto) 0.5 (0.1-1.2) % Neut # (Auto) 3.54 (1.56-6.13) K/mm3 Lymph # (Auto) 1.74 (1.18-3.74) K/mm3 Harris # (Auto) 0.47 H (0.24-0.36) K/mm3 Eos # (Auto) 0.21 (0.04-0.36) K/mm3 Baso # (Auto) 0.03 (0.01-0.08) K/mm3 Sodium 139 (136-145) mEq/L Potassium 3.6 (3.5-5.1) mEq/L Chloride 102 (98-107) mEq/L Carbon Dioxide 28 (21-32) mEq/L Anion Gap 12.6 (5-15) BUN 6 L (7-18) mg/dL Creatinine 0.7 (0.55-1.02) mg/dL Est Cr Clr Drug Dosing 85.01 mL/min Estimated GFR (MDRD) > 60 (>60) mL/min BUN/Creatinine Ratio 8.6 L (14-18) Glucose 99 (74-106) mg/dL Calcium 9.3 (8.5-10.1) mg/dL Total Bilirubin 0.3 (0.2-1.0) mg/dL Direct Bilirubin 0.10 (0.0-0.2) mg/dl AST 14 L (15-37) U/L ALT 27 (14-59) U/L Alkaline Phosphatase 85 (46-116) U/L Total Protein 7.5 (6.4-8.2) g/dl Albumin 3.7 (3.4-5.0) g/dl Globulin 3.8 gm/dL Albumin/Globulin Ratio 1.0 (1-2) Lipase 74 (73-393) U/L - Re-Assessments/Exams Free Text/Narrative Re-Assessment/Exam: 11/20/19 22:24 Labs look pretty good. He is discussed with Dr. Travis in the setting of normal liver enzymes and nothing concerning on labs imaging is probably not of any benefit. It is recommended the patient follow-up with in the next 2 the patient has a 2-week check on . Of advised the patient to follow- up sooner if she continues to have problems Departure - Departure Time of Disposition: 22:25 Disposition: Home, Self-Care 01 Clinical Impression: Right upper quadrant pain, Hx laparoscopic cholecystectomy - Discharge Information Referrals: Frank hCi MD [Primary Care Provider] - Forms: ED Department Discharge Additional Instructions: Return to the emergency room with any questions problems or worsening symptoms. Follow-up with Dr. Francisco as scheduled sooner if you continue to have symptoms [place] diet push fluids. Sepsis Event Note (ED) - Evaluation Sepsis Screening Result: No Definite Risk - Focused Exam Vital Signs: Vital Signs Temp Pulse Resp BP Pulse Ox 11/20/19 20:42 36.3 C 78 18 135/59 L 100
== END 2019-11-20 23:00 | disposition home or self-care (01) ==
LOC: JD.ED 20:32
DX: R10.11 Right upper quadrant pain (principal); Z90.49 Acquired absence of other specified parts of digestive tract; Z88.8 Allergy status to other drugs, medicaments and biological substances; Z88.5 Allergy status to narcotic agent; Z88.2 Allergy status to sulfonamides; Z88.1 Allergy status to other antibiotic agents; Z87.891 Personal history of nicotine dependence
CPT/HCPCS: 36415; 80053; 82248; 83690; 85025; 99282; 99284

== ENCOUNTER 2020-04-13 14:47 | Emergency (ER) | payer BC ==
[2020-04-13] MEDS ORDERED: Sodium Chloride 0.9% 10 ML Syringe FLUSH PRN (15:05)
[2020-04-13] MEDS ORDERED: Sodium Chloride 0.9% 1,000 ML IV STA (15:06)
--- NOTE | 2020-04-13 16:00 | EDM.PDOC ---
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 States that on average, she saturates 4 overnight pads per day. She her OBGYN, Dr. Bedoya, in the clinic aproximated 2 weeks ago. She was put on progesterone 10mg x 1 week, followed by 5 mg x 1 week. When she was taking the 10mg progesterone, her vaginal bleeding improved to just spotting but resumed to full bleeding again when she transitioned to the 5mg. She had a transvaginal ultrasound completed on 04 April which showed a slightly lobulated endometrium, uncertain if this is due to lobulated endometrial lining versus poorly defined polyp. She also had a 3 cm cyst on her left ovary. She states she contacted her BILLING SERVICES MANAGER's office last week but that she got no answers. She does not think she has a follow-up appointment scheduled with her provider. States that she feels weak and fatigued but denies any dizziness. - Related Data Allergies Allergy/AdvReac Type Severity Reaction Status Date / Time esomeprazole magnesium Allergy Severe Swollen Verified 04/18/20 08:28 [From Nexium] Tongue hydrocodone Allergy Severe Shortness Verified 04/18/20 08:28 of Breath sulfamethoxazole Allergy Severe Swollen Verified 04/18/20 08:28 [From Bactrim] Tongue trimethoprim [From Bactrim] Allergy Severe Swollen Verified 04/18/20 08:28 Tongue ciprofloxacin [From Cipro] AdvReac Severe Headache Verified 04/18/20 08:28 Home Meds: Home Meds Orphenadrine [Norflex] 1 tab PO Q12H PRN #14 tab 12/25/18 [Rx] Calcium Carbonate [Tums] 3 tab PO ASDIRECTED PRN 11/08/19 [History] Digestive 8/L.acidoph/Pectin [Digestive Enzymes Tablet] 2 tab PO QPM 11/08/19 [History] Docusate Sodium [Colace] 100 mg PO BID 20 Days #40 cap 11/08/19 [Rx] Doxylamine Succinate [Unisom] 25 mg PO QPM 11/08/19 [History] Ibuprofen 600 mg PO Q6H PRN 20 Days #60 tablet 11/08/19 [Rx] L.acidoph,Paracasei, B.lactis [Probiotic] 2 cap PO DAILY 11/08/19 [History] MV,Ca,Min/FA/Herbal Comp #223 [Estroven Mood and Memory Cplt] 1 tab PO DAILY 11/08/19 [History] Magnesium Citrate 2 tab PO DAILY 11/08/19 [History] Magnesium Gluconate 1 tab PO DAILY 11/08/19 [History] Melatonin 5 - 10 mg PO QPM PRN 11/08/19 [History] Multivitamin [Multivitamins] 1 each PO DAILY 11/08/19 [History] Non-Formulary Medication [NF Drug] 2 tsp PO QPM 11/08/19 [History] Non-Formulary Medication [NF Drug] 5 drop PO BID 11/08/19 [History] Non-Formulary Medication [NF Drug] 5 drop PO TID 11/08/19 [History] Vitamin B Complex [B Complex] 1 each PO DAILY 11/08/19 [History] Zolpidem Tartrate [Ambien] 1 tab PO QPM PRN 11/08/19 [History] Past Medical History - Past Health History Medical/Surgical History: Denies Medical/Surgical History Cardiovascular History: Reports: High Cholesterol Other Cardiovascular History: hypotension, palpatations, preventricular contractions, irregular HR Respiratory History: Reports: None Gastrointestinal History: Reports: GERD, PUD Other Gastrointestinal History: Gallbladder attacks Genitourinary History: Reports: Urinary Incontinence, Other (See Below) Other Genitourinary History: ovarian cyst 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 - Past Surgical History Cardiovascular Surgical History: Reports: None GI Surgical History: Reports: Cholecystectomy, EGD - History Comment History Comment: off k+ Social & Family History - Family History Family Medical History: No Pertinent Family History - Tobacco Use Tobacco Use Status *Q: Never Tobacco User Second Hand Smoke Exposure: No - Caffeine Use Caffeine Use: Reports: None Caffeine Use Comment: reports minimal coffee drinking since August 2019 - Recreational Drug Use Recreational Drug Use: No - Living Situation & Occupation Living situation: Reports: , with Spouse, with Family (5 kids) Occupation: Unemployed ED ROS GENERAL - Review of Systems Review Of Systems: See Below Constitutional: Reports: Weakness, Fatigue. Denies: Fever, Chills HEENT: Reports: No Symptoms Respiratory: Reports: No Symptoms Cardiovascular: Reports: No Symptoms Endocrine: Reports: No Symptoms GI/Abdominal: Reports: No Symptoms : Reports: Irregular Menses Musculoskeletal: Reports: No Symptoms Skin: Reports: No Symptoms Neurological: Reports: No Symptoms Psychiatric: Reports: No Symptoms Hematologic/Lymphatic: Reports: No Symptoms Immunologic: Reports: No Symptoms ED EXAM, RENAL/ - Physical Exam Exam: See Below General Appearance: Alert, WD/WN, No Apparent Distress Respiratory/Chest: No Respiratory Distress, Lungs Clear, Normal Breath Sounds, No Accessory Muscle Use, Chest Non-Tender Cardiovascular: Normal Peripheral Pulses, Regular Rate, Rhythm, No Edema, No Gallop, No JVD, No Murmur, No Rub GI/Abdominal: Normal Bowel Sounds, Soft, Non-Tender, No Organomegaly, No Distention, No Abnormal Bruit, No Mass Neurological: Alert, Oriented, CN II-XII Intact, Normal Cognition, Normal Gait, Normal Reflexes, No Motor/Sensory Deficits Psychiatric: Normal Affect, Normal Mood Skin Exam: Warm, Dry, Intact, Normal Color, No Rash Course - Vital Signs Last Recorded V/S: Last Vital Signs Temp 98.5 F 04/13/20 16:30 Pulse 80 04/13/20 16:30 Resp 16 04/13/20 16:30 BP 126/67 04/13/20 16:30 Pulse Ox 96 04/13/20 16:30 Orthostatic Blood Pressure [ 154/113 Standing] Orthostatic Blood Pressure [ 133/74 Supine] - Orders/Labs/Meds Labs: Laboratory Tests 04/13/20 04/13/20 Range/Units 15:15 15:15 WBC 6.86 (3.98-10.04) K/mm3 RBC 3.76 L (3.98-5.22) M/mm3 Hgb 11.4 D (11.2-15.7) gm/dl Hct 36.1 (34.1-44.9) % MCV 96.0 H (79.4-94.8) fl MCH 30.3 (25.6-32.2) pg MCHC 31.6 L (32.2-35.5) g/dl RDW Std Deviation 44.0 (36.4-46.3) fL Plt Count 332 (182-369) K/mm3 MPV 9.7 (9.4-12.3) fl Neut % (Auto) 67.4 (34.0-71.1) % Lymph % (Auto) 25.4 (19.3-51.7) % [place] % (Auto) 5.8 (4.7-12.5) % Eos % (Auto) 1.3 (0.7-5.8) Baso % (Auto) 0.1 (0.1-1.2) % Neut # (Auto) 4.62 (1.56-6.13) K/mm3 Lymph # (Auto) 1.74 (1.18-3.74) K/mm3 [place] # (Auto) 0.40 H (0.24-0.36) K/mm3 Eos # (Auto) 0.09 (0.04-0.36) K/mm3 Baso # (Auto) 0.01 (0.01-0.08) K/mm3 Sodium 137 (136-145) mEq/L Potassium 3.6 (3.5-5.1) mEq/L Chloride 101 (98-107) mEq/L Carbon Dioxide 24 (21-32) mEq/L Anion Gap 15.6 H (5-15) BUN 7 (7-18) mg/dL Creatinine 0.8 (0.55-1.02) mg/dL Est Cr Clr Drug Dosing 74.38 mL/min Estimated GFR (MDRD) > 60 (>60) mL/min BUN/Creatinine Ratio 8.8 L (14-18) Glucose 127 H (74-106) mg/dL Calcium 8.9 (8.5-10.1) mg/dL Total Bilirubin 0.3 (0.2-1.0) mg/dL AST 19 (15-37) U/L ALT 32 (14-59) U/L Alkaline Phosphatase 64 (46-116) U/L C-Reactive Protein 0.3 (<1.0) mg/dL Total Protein 7.6 (6.4-8.2) g/dl Albumin 3.8 (3.4-5.0) g/dl Globulin 3.8 gm/dL Albumin/Globulin Ratio 1.0 (1-2) Meds: Medications Discontinued Medications Generic Name Dose Route Start Last Admin Trade Name Andrea PRN Reason Stop Dose Admin Sodium Chloride 1,000 mls @ 999 mls/hr 04/13/20 15:06 04/13/20 15:22 Normal Saline IV 04/13/20 16:06 150 mls/hr NOW STA Administration Sodium Chloride 10 ml 04/13/20 15:05 04/13/20 15:20 Saline Flush FLUSH 10 ml ASDIRECTED PRN Administration Keep Vein Open - Re-Assessments/Exams Free Text/Narrative Re-Assessment/Exam: Patient is a 54-year-old female presenting to the emergency department with complaints of 5-week history of vaginal bleeding. She has been doctoring with her mayonnaise mixer, Dr. Bedoya. She had ultrasound completed on 04 April which showed a slightly lobulated endometrium uncertain if it is due to a lobulated e ndometrial lining versus poorly defined polyp. She also has a 3 cm cyst on her left ovary. Patient states that she have improvement with her bleeding when she was on progesterone 10 mg, however when she decreased her dose the bleeding resumed. She was borderline orthostatic. Pulse went from 82 lying to 102 standing. Blood pressure increased when standing. Will complete blood work including CBC, CMP, CRP. I will give her 1 L bolus normal saline. Once lab results are available, I will consult with Dr. Bedoya who is the BILLING SERVICES MANAGER on-call at this time. 04/13/20 16:14 Hematology was grossly unremarkable. Hemoglobin 11.4 which is down from 13.[address] on [address] Bedoya. He recommended that we start her back on progesterone 10 mg daily and that she contact his office Wednesday morning to set up an appointment for this week. He plans to do further testing with regards to her bleeding. Discussed with the patient and she is in agreement. Discharge instructions as documented. Departure - Departure Time of Disposition: 16:14 Disposition: Home, Self-Care 01 Condition: Good Clinical Impression: Abnormal vaginal bleeding - Discharge Information *PRESCRIPTION DRUG MONITORING PROGRAM REVIEWED*: No *COPY OF PRESCRIPTION DRUG MONITORING REPORT IN PATIENT DENITA: No Instructions: Abnormal Uterine Bleeding Referrals: Frank Chi MD [Primary Care Provider] - Archie Bedoya MD [Physician] - Forms: ED Department Discharge Additional Instructions: You were seen in the emergency department today for 5-week history of vaginal bleeding. Blood work was completed in the ER. Shows your hemoglobin is still within the normal range, however it has decreased slightly from your previous blood work. While in the ER, he received 1 L of IV fluids. We did consult with your mayonnaise mixer, Dr. Bedoya. He recommended that you start back on the progesterone 10 mg and call his office Wednesday morning to set up an appointment. A prescription for progesterone has been sent to [facility]. Take the medication as prescribed. Recommend that you call his office first thing Wednesday to set up an appointment. If you should experience any new or worsening symptoms of concern, please not hesitate to return to the emergency department. Sepsis Event Note (ED) - Evaluation Sepsis Screening Result: No Definite Risk
[2020-04-13 16:44] VITALS: BP 126/67; PULSE 80
== END 2020-04-13 16:45 | disposition home or self-care (01) ==
LOC: JD.ED 14:47
DX: N93.9 Abnormal uterine and vaginal bleeding, unspecified (principal); Z88.8 Allergy status to other drugs, medicaments and biological substances; Z88.5 Allergy status to narcotic agent; Z88.2 Allergy status to sulfonamides; Z88.1 Allergy status to other antibiotic agents
CPT/HCPCS: 36415; 80053; 85025; 86140; 99284; J7030; 99283

== ENCOUNTER 2020-04-18 08:06 | Day surgery (SDC) | payer BC ==
[2020-04-18] MEDS ORDERED: Sodium Chloride 0.9% 10 ML Syringe FLUSH PRN (08:18)
[2020-04-18] MEDS ORDERED: Lactated Ringers 1,000 ML IV SCH (08:30)
--- NOTE | 2020-04-18 08:34 | PCM.PREANE ---
Preanesthetic Assessment - Procedure Proposed Procedure: Hysteroscopy with D/C - Anesthesia/Transfusion/Family Hx Anesthesia History: Prior Anesthesia Without Reaction Family History of Anesthesia Reaction: No Transfusion History: No Prior Transfusion(s) Intubation History: Unknown - Review of Systems General: No Symptoms Pulmonary: No Symptoms (Quit smoking 30 years ago.), Wheezing Cardiovascular: No Symptoms (Elevated cholesterol), Palpitations (History of PVC's:Patient saw circle edger in December.), Lightheadedness Gastrointestinal: No Symptoms (GERD), Diarrhea Neurological: No Symptoms, Dizziness (ringing in ears noted along with vertigo.), Headache (Migraines), Numbness (hands and feet occasionally) Other: Reports: Thyroid Problems (History of hypothyroid/no longer present), Neck Pain, Anxiety - Physical Assessment NPO Status Date: 04/18/20 NPO Status Time: 06:00 Vital Signs: Last Vital Signs Temp 36.3 C 04/18/20 08:15 Pulse 88 04/18/20 08:15 Resp 18 04/18/20 08:15 BP 133/78 04/18/20 08:15 Pulse Ox 95 04/18/20 08:15 Height: 1.68 m Weight: 68.039 kg ASA Class: 2E Mental Status: Alert & Oriented x3 Airway Class: Mallampati = 3 Dentition: Reports: Normal Dentition (wires noted permanent upper and lower (Retainers)), Caries Thyro-Mental Finger Breadths: 3 Mouth Opening Finger Breadths: 3 ROM/Head Extension: Full Lungs: Clear to Auscultation, Normal Respiratory Effort Cardiovascular: Regular Rate, Regular Rhythm, No Murmurs - Lab Values: All labs reviewed and noted and within acceptable ranges to proceed with scheduled procedure. - Imaging/EKG Impressions: EKG: SR rate=81 Echocardiogram=EF= 60-65% - Allergies Allergies/Adverse Reactions: Allergies Allergy/AdvReac Type Severity Reaction Status Date / Time esomeprazole magnesium Allergy Severe Swollen Verified 04/18/20 08:28 [From Nexium] Tongue hydrocodone Allergy Severe Shortness Verified 04/18/20 08:28 of Breath sulfamethoxazole Allergy Severe Swollen Verified 04/18/20 08:28 [From Bactrim] Tongue trimethoprim [From Bactrim] Allergy Severe Swollen Verified 04/18/20 08:28 Tongue ciprofloxacin [From Cipro] AdvReac Severe Headache Verified 04/18/20 08:28 - Anesthesia Plan Pre-Op Medication Ordered: None - Acknowledgements Anesthesia Type Planned: General Anesthesia, MAC Pt an Appropriate Candidate for the Planned Anesthesia: Yes Alternatives and Risks of Anesthesia Discussed w Pt/Guardian: Yes Pt/Guardian Understands and Agrees with Anesthesia Plan: Yes PreAnesthesia Questionnaire - Past Health History Medical/Surgical History: Denies Medical/Surgical History Cardiovascular History: Reports: High Cholesterol Other Cardiovascular History: hypotension, palpatations, preventricular contractions, irregular HR Respiratory History: Reports: None Gastrointestinal History: Reports: GERD, PUD Other Gastrointestinal History: Gallbladder attacks Genitourinary History: Reports: Urinary Incontinence, Other (See Below) Other Genitourinary History: ovarian cyst 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 - Past Surgical History Cardiovascular Surgical History: Reports: None GI Surgical History: Reports: Cholecystectomy, EGD - History Comment History Comment: off k+ - HOME MEDS Home Medications: Home Meds Orphenadrine [Norflex] 1 tab PO Q12H PRN #14 tab 12/25/18 [Rx] Calcium Carbonate [Tums] 3 tab PO ASDIRECTED PRN 11/08/19 [History] Digestive 8/L.acidoph/Pectin [Digestive Enzymes Tablet] 2 tab PO QPM 11/08/19 [History] Docusate Sodium [Colace] 100 mg PO BID 20 Days #40 cap 11/08/19 [Rx] Doxylamine Succinate [Unisom] 25 mg PO QPM 11/08/19 [History] Ibuprofen 600 mg PO Q6H PRN 20 Days #60 tablet 11/08/19 [Rx] L.acidoph,Paracasei, B.lactis [Probiotic] 2 cap PO DAILY 11/08/19 [History] MV,Ca,Min/FA/Herbal Comp #223 [Estroven Mood and Memory Cplt] 1 tab PO DAILY 11/08/19 [History] Magnesium Citrate 2 tab PO DAILY 11/08/19 [History] Magnesium Gluconate 1 tab PO DAILY 11/08/19 [History] Melatonin 5 - 10 mg PO QPM PRN 11/08/19 [History] Multivitamin [Multivitamins] 1 each PO DAILY 11/08/19 [History] Non-Formulary Medication [NF Drug] 2 tsp PO QPM 11/08/19 [History] Non-Formulary Medication [NF Drug] 5 drop PO BID 11/08/19 [History] Non-Formulary Medication [NF Drug] 5 drop PO TID 11/08/19 [History] Vitamin B Complex [B Complex] 1 each PO DAILY 11/08/19 [History] Zolpidem Tartrate [Ambien] 1 tab PO QPM PRN 11/08/19 [History] Norethindrone [Norethindrone Acetate] 10 mg PO DAILY 14 Days #28 tab 04/13/20 [Rx] - CURRENT (IN HOUSE) MEDS Current Meds: Current Medications Lactated Ringer's (Ringers, Lactated) 1,000 mls @ 125 mls/hr IV ASDIRECTED RUDI Sodium Chloride (Saline Flush) 10 ml FLUSH ASDIRECTED PRN PRN Reason: Keep Vein Open
[2020-04-18] MEDS ORDERED: diphenhydrAMINE 50 MG/ML SDV ONE (09:03)
[2020-04-18] MEDS ORDERED: Dexamethasone 4 MG/ML 5 ML MDV ONE (09:03)
[2020-04-18] MEDS ORDERED: Propofol 200 MG/20 ML SDV ONE (09:03)
[2020-04-18] MEDS ORDERED: Lactated Ringers 1,000 ML ONE ×2 (09:03→09:49)
[2020-04-18] MEDS ORDERED: Ketorolac 30 MG/ML SDV ONE (09:03)
[2020-04-18] MEDS ORDERED: ceFAZolin 1 GM Vial ONE (09:03)
[2020-04-18] MEDS ORDERED: Lidocaine 1% 4 ML ONE (09:03)
[2020-04-18] MEDS ORDERED: fentaNYL 100 MCG/2 ML SDV ONE (09:03)
[2020-04-18] MEDS ORDERED: Ondansetron 4 MG/2 ML SDV ONE (09:03)
[2020-04-18] MEDS ORDERED: Midazolam 1 MG/ML 2 ML SDV ONE (09:04)
[2020-04-18] MEDS ORDERED: Ketamine 500 mg/10 ML MDV ONE (09:04)
[2020-04-18] MEDS ORDERED: fentaNYL 100 MCG/2 ML SDV IVPUSH PRN (09:21)
[2020-04-18] MEDS ORDERED: Ondansetron 4 MG/2 ML SDV IVPUSH PRN ×2 (09:21→10:24)
[2020-04-18] MEDS ORDERED: ePHEDrine 50 MG/ML SDV IVPUSH PRN (09:21)
--- NOTE | 2020-04-18 10:13 | PCM48HPAN ---
Post Anesthesia Note - EVALUATION WITHIN 48HRS OF ANESTHETIC Vital Signs in Normal Range: Yes Patient Participated in Evaluation: Yes Respiratory Function Stable: Yes Airway Patent: Yes Cardiovascular Function Stable: Yes Hydration Status Stable: Yes Pain Control Satisfactory: Yes Nausea and Vomiting Control Satisfactory: Yes Mental Status Recovered: Yes Vital Signs: Last Vital Signs Temp 36.3 C 04/18/20 08:15 Pulse 88 04/18/20 08:15 Resp 18 04/18/20 08:15 BP 133/78 04/18/20 08:15 Pulse Ox 95 04/18/20 08:15
--- NOTE | 2020-04-18 10:30 | PCM.OPNOTE ---
- General Post-Op/Procedure Note Date of Surgery/Procedure: 04/18/20 Operative Procedure(s): Hysteroscopy, dilation and curettage Findings: Uterus sounded to 9-1/2 cm. No adnexal abnormalities noted. Patient has moderate bladder relaxation with grade 1 uterine descensus, grade 1 cystocele, grade 1 rectocele. Relaxation and vaginal caliber adequate to allow for vaginal hysterectomy if this is to be performed in the future. Endometrial cavity was relatively benign in appearance. No polypoid structures were noted. Some wispy endometrium was present. Moderate amount of endometrial tissue was removed with curettage. Pre Op Diagnosis: 1. Perimenopausal uterine bleeding. 2. Thickened endometrium Post-Op Diagnosis: Same Anesthesia Technique: MAC Primary Surgeon: Archie Bedoya Anesthesia Provider: Lela Jeter Pathology: Endometrial curettings Fluid Replacement, Intraop: 600 EBL in mLs: 10 Complications: None Condition: Good Free Text/Narrative:: Surgery duration: 13 minutes. Procedure: The patient is taking the operative placed in a supine position on the operating table. She received 2 g of Ancef preoperatively for infection prophylaxis and had sequential compression stockings in place for DVT prophylaxis. Patient was given MAC anesthesia. She is placed in a dorsal lithotomy position and prepped and draped in usual fashion. An exam under anesthesia was performed. Findings as described above. A weighted speculum was placed in the vagina. Cervix is visualized. It was grasped anteriorly with a single-tooth tenaculum. Uterus was then sounded to a depth of 9 -1/2 cm. It is from the anterior, mid position. The cervix was dilated to entrance of a 5 mm well rigid hysteroscope. This was placed without problem and normal saline was used as a distending medium. The endometrial cavity was visualized. Findings as described above. D&C was performed in a routine fashion. Moderate amount tissue was obtained. Minimal bleeding was encountered. The vagina was cleared of old blood, the cervix was released and the weighted speculum was removed. Patient was returned to supine position and awakened from general anesthesia. She tolerated the procedure well and operating room in good condition.
[2020-04-18 10:44] VITALS: PULSE 78
[2020-04-18 11:42] VITALS: BP 133/73
[2020-04-18] MEDS ORDERED: Ibuprofen 600 MG Tab PO PRN (15:30)
== END 2020-04-18 11:28 | disposition home or self-care (01) ==
LOC: JD.ED 08:06 → JD.SDS 08:46
PROVIDERS: ATTEND Obstetrics & Gynecology
DX: D25.0 Submucous leiomyoma of uterus (principal); N84.0 Polyp of corpus uteri; F41.9 Anxiety disorder, unspecified; G43.909 Migraine, unspecified, not intractable, without status migrainosus; Z87.891 Personal history of nicotine dependence; Z01.812 Encounter for preprocedural laboratory examination; Z20.828 Contact with and (suspected) exposure to other viral communicable diseases
CPT/HCPCS: 58558; 87635; J0690; J1100; J1200; J1885; J2001; J2250; J2405; J2704; J3010; J7120; 00952; U0002

== ENCOUNTER 2020-04-20 16:49 | Emergency (ER) | payer BC ==
[2020-04-20 16:55] VITALS: BP 170/91; PULSE 90
--- NOTE | 2020-04-20 17:02 | EDM.PDOC ---
ED HPI GENERAL MEDICAL PROBLEM - General Chief Complaint: Chest Pain Stated Complaint: CHEST PAIN AND SOB Time Seen by Provider: 04/20/20 16:57 Source of Information: Reports: Patient History Limitations: Reports: No Limitations - History of Present Illness INITIAL COMMENTS - FREE TEXT/NARRATIVE: 54-year-old female attends the ED complaining of central chest pressure discomfort rating up into her throat and anterior neck and perhaps slightly into her mandible. Feels it across both sides of her upper chest rating into her arms and perhaps a little worse on the left side down to the elbow. She feels dyspneic. She has felt this way all day long. Started yesterday evening. Of note the patient has been on a prolonged course of progesterone in an effort to bring her menorrhagia under control during the month of March. She was on it for a believe 19 days. The last 5 days of treatment she developed diffuse myalgia and bone pain and could not tolerate the high-dose progesterone. Therefore he was discontinued with her last dose being taking on the evening of March 2030. She underwent D&C by Dr. Bedoya on April 18 and was discharged to home. This has brought the bleeding under control and D&C was done of course to obtain specimen for pathological analysis. At the time presentation O2 sats are 100% on room air although she is tachypneic. She is also chilling a little bit and had a low-grade fever. She did have a COVID-19 screen done before her D&C on Apr 18 and it was negative. She denies cough or sputum production. She is concerned about possible heart attack. Of note she did have some pain posterior right calf about 10 days ago. EEG done by triage nurse shows sinus rhythm at 88/min with early R wave transition concerning for possible right ventricular strain versus septal hypertrophy. There also is biatrial hypertrophy. No signs of ischemia. Onset: Sudden Onset Date: 04/19/20 Onset Time: 15:00 Duration: Hour(s):, Getting Worse Location: Reports: Chest (Chest discomfort with a strong sense of dyspnea. O2 sats are maintained at 100% but she is mildly tachypneic at 20 to 22 breaths/min. Pain radiates across her upper chest and into her neck throat area and slightly into her left upper arm.) Quality: Reports: Pressure Severity: Moderate Improves with: Reports: None Worsens with: Reports: None Context: Denies: Activity, Exercise, Lifting, Sick Contact, Trauma, Other Associated Symptoms: Reports: Chest Pain, Fever/Chills (See history of present illness), Loss of Appetite, Malaise, Nausea/Vomiting (Feels chilled while in the ED.), Shortness of Breath, Weakness, Other. Denies: Cough, cough w sputum, Diaphoresis, Headaches, Rash ( Nausea for several days. 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 (see below) (None.) Chest Pain Score (Numeric/FACES): 8 - Related Data Allergies Allergy/AdvReac Type Severity Reaction Status Date / Time esomeprazole magnesium Allergy Severe Swollen Verified 04/18/20 08:28 [From Nexium] Tongue hydrocodone Allergy Severe Shortness Verified 04/18/20 08:28 of Breath Progestins Allergy Severe Other Verified 04/20/20 16:55 sulfamethoxazole Allergy Severe Swollen Verified 04/18/20 08:28 [From Bactrim] Tongue trimethoprim [From Bactrim] Allergy Severe Swollen Verified 04/18/20 08:28 Tongue ciprofloxacin [From Cipro] AdvReac Severe Headache Verified 04/18/20 08:28 Home Meds: Home Meds Orphenadrine [Norflex] 1 tab PO Q12H PRN #14 tab 12/25/18 [Rx] Calcium Carbonate [Tums] 3 tab PO ASDIRECTED PRN 11/08/19 [History] Digestive 8/L.acidoph/Pectin [Digestive Enzymes Tablet] 2 tab PO QPM 11/08/19 [History] Docusate Sodium [Colace] 100 mg PO BID 20 Days #40 cap 11/08/19 [Rx] Doxylamine Succinate [Unisom] 25 mg PO QPM 11/08/19 [History] Ibuprofen 600 mg PO Q6H PRN 20 Days #60 tablet 11/08/19 [Rx] L.acidoph,Paracasei, B.lactis [Probiotic] 2 cap PO DAILY 11/08/19 [History] MV,Ca,Min/FA/Herbal Comp #223 [Estroven Mood and Memory Cplt] 1 tab PO DAILY 11/08/19 [History] Magnesium Citrate 2 tab PO DAILY 11/08/19 [History] Magnesium Gluconate 1 tab PO DAILY 11/08/19 [History] Melatonin 5 - 10 mg PO QPM PRN 11/08/19 [History] Multivitamin [Multivitamins] 1 each PO DAILY 11/08/19 [History] Non-Formulary Medication [NF Drug] 2 tsp PO QPM 11/08/19 [History] Non-Formulary Medication [NF Drug] 5 drop PO BID 11/08/19 [History] Non-Formulary Medication [NF Drug] 5 drop PO TID 11/08/19 [History] Vitamin B Complex [B Complex] 1 each PO DAILY 11/08/19 [History] Zolpidem Tartrate [Ambien] 1 tab PO QPM PRN 11/08/19 [History] Past Medical History - Past Health History Medical/Surgical History: Denies Medical/Surgical History Cardiovascular History: Reports: High Cholesterol Other Cardiovascular History: hypotension, palpatations, preventricular contractions, irregular HR Respiratory History: Reports: None Gastrointestinal History: Reports: GERD, PUD Other Gastrointestinal History: Gallbladder attacks Genitourinary History: Reports: Urinary Incontinence, Other (See Below) Other Genitourinary History: ovarian cyst 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 When she stopped it her bleeding returned. She is was therefore placed on double dose for 5 days which she found intolerable due to cramping and diffuse aching in her bones. The last dose was taken on the evening of April 17. On April 18 she underwent a D&C by Dr. Bedoya PUBLICATIONS PRODUCTION SUPERVISOR and bleeding has stopped. A hysterectomy has been recommended. Musculoskeletal History: Reports: Arthritis Neurological History: Reports: Migraines Endocrine/Metabolic History: Reports: Hypothyroidism Hematologic History: Reports: Anemia Immunologic History: Reports: Other (See Below) Other Immunologic History: Cathi Pearson Infection, reports was diagnosed 20years ago. - Past Surgical History Cardiovascular Surgical History: Reports: None GI Surgical History: Reports: Cholecystectomy, EGD - History Comment History Comment: off k+ Social & Family History - Family History Family Medical History: No Pertinent Family History - Caffeine Use Caffeine Use: Reports: None Caffeine Use Comment: reports minimal coffee drinking since August 2019 - Living Situation & Occupation Living situation: Reports: , with Spouse, with Family (5 kids) Occupation: Unemployed ED ROS GENERAL - Review of Systems Review Of Systems: See Below Constitutional: Reports: Chills, Malaise, Weakness, Fatigue, Decreased Appetite. Denies: Fever HEENT: Reports: Glasses Respiratory: Reports: Shortness of Breath. Denies: Wheezing, Pleuritic Chest Pain, Cough, Sputum, Hemoptysis Cardiovascular: Reports: Chest Pain, Dyspnea on Exertion, Lightheadedness. Denies: Blood Pressure Problem (History of present illness), Claudication, Edema, Orthopnea, Palpitations Endocrine: Reports: Fatigue GI/Abdominal: Reports: Constipation (Has been very sluggish over the last couple of weeks), Decreased Appetite ( while on progesterone. Decreased appetite well on progesterone and slowly getting better. She had her gallbladder out in October and still has to watch what she eats as it would precipitate abdominal pain and cramping. Bowels did were good today after using Colace for the last few days.), Distension (Always feels bloated.), Nausea. Denies: Diarrhea, Vomiting : Reports: Other (Postmenopausal bleeding starting mid February. Sought medical care 3 weeks after developing heavy flow per vagina. Was placed on a course of progesterone for 14 days but after completing this dosage her bleeding returned. She was therefore placed on a higher dose of progesterone for 5 days but could flex not tolerate the dosage. Subsequently a D&C was done April 18 with tissue obtained for pathological analysis. She has been told by Dr. Bedoya that she will require hysterectomy.) Musculoskeletal: Reports: Other Skin: Reports: No Symptoms Neurological: Reports: Tingling. Denies: Confusion, Dizziness, Headache, Numbness Psychiatric: Reports: No Symptoms Hematologic/Lymphatic: Reports: No Symptoms Immunologic: Reports: No Symptoms ED EXAM, GENERAL - Physical Exam Exam: See Below Exam Limited By: No Limitations General Appearance: Alert, WD/WN, Anxious, Moderate Distress, Other (Patient definitely is showing some degree of anxiety. Temperature is 36.8 with a heart rate of 90 respiratory was 18 to 22/min with O2 sats of 100% on room air. Blood pressure 170/91 initially. Quickly it came down to 140 over) Eye Exam: Bilateral Eye: Normal Inspection, PERRL Throat/Mouth: Normal Inspection, Normal Lips, Normal Teeth, Normal Oropharynx Head: Atraumatic, Normocephalic Neck: Normal Inspection, Supple, Non-Tender, Full Range of Motion. No: Carotid Bruit, Lymphadenopathy (L), Lymphadenopathy (R) Respiratory/Chest: Lungs Clear (Mild tachypnea.), Normal Breath Sounds, No Accessory Muscle Use, Chest Non-Tender, Respiratory Distress Cardiovascular: Normal Peripheral Pulses, Regular Rate, Rhythm, No Edema, No Gallop, No Murmur, No Rub Peripheral Pulses: 3+: Carotid (L), Carotid (R), Posterior Tibial (L), Posterior Tibial (R), Dorsalis Pedis (L), Dorsalis Pedis (R) GI/Abdominal: Normal Bowel Sounds, Soft, Non-Tender, No Organomegaly, No Mass, Pelvis Stable, Distended (Distended and slightly tympany to percussion.) Back Exam: Normal Inspection, Full Range of Motion. No: CVA Tenderness (L), CVA Tenderness (R) Extremities: Normal Inspection, Normal Range of Motion, Non-Tender, No Pedal Edema, Other (I could not elicit any tenderness in the posterior aspect of either calf. Squeeze test normal no dependent edema. She does have a small Waters's cyst right popliteal fossa.) Neurological: Alert, Oriented, CN II-XII Intact, Normal Cognition Psychiatric: Anxious Skin Exam: Warm, Dry, Intact, Normal Color, No Rash #1 Interpretation EKG Date: 04/20/20 Time: 16:56 Rhythm: NSR Rate (Beats/Min): 88 [place]: Normal P-Wave: Present (Consider biatrial hypertrophy.) QRS: Other (Early R wave transition consider right ventricular hypertrophy versus septal hypertrophy pattern.) ST-T: Other (T wave flattening leads aVL, V3 nonspecific finding.) QT: Normal EKG Interpretation Comments: Abnormal ECG. No si9gns of ischemia. Course - Vital Signs Last Recorded V/S: Last Vital Signs Temp 36.8 C 04/20/20 16:52 Pulse 90 04/20/20 16:52 Resp 18 04/20/20 16:52 BP 170/91 H 04/20/20 16:52 Pulse Ox 100 04/20/20 16:52 - Orders/Labs/Meds Labs: Laboratory Tests 04/20/20 04/20/20 04/20/20 Range/Units 16:58 16:58 16:58 WBC 7.00 (3.98-10.04) K/mm3 RBC 3.99 (3.98-5.22) M/mm3 Hgb 12.3 (11.2-15.7) gm/dl Hct 38.5 (34.1-44.9) % MCV 96.5 H (79.4-94.8) fl MCH 30.8 (25.6-32.2) pg MCHC 31.9 L (32.2-35.5) g/dl RDW Std Deviation 47.1 H (36.4-46.3) fL Plt Count 347 (182-369) K/mm3 MPV 9.9 (9.4-12.3) fl Neut % (Auto) 62.4 (34.0-71.1) % Lymph % (Auto) 30.0 (19.3-51.7) % Wirt % (Auto) 6.3 (4.7-12.5) % Eos % (Auto) 0.9 (0.7-5.8) Baso % (Auto) 0.4 (0.1-1.2) % Neut # (Auto) 4.37 (1.56-6.13) K/mm3 Lymph # (Auto) 2.10 (1.18-3.74) K/mm3 Wirt # (Auto) 0.44 H (0.24-0.36) K/mm3 Eos # (Auto) 0.06 (0.04-0.36) K/mm3 Baso # (Auto) 0.03 (0.01-0.08) K/mm3 PT 10.6 (9.7-12.0) SECONDS INR 0.99 APTT 22.6 (21.7-31.4) SECONDS D-Dimer, Quantitative 4.15 H (0.19-0.50) mg/L Sodium 138 (136-145) mEq/L Potassium 3.1 L (3.5-5.1) mEq/L Chloride 101 (98-107) mEq/L Carbon Dioxide 24 (21-32) mEq/L Anion Gap 16.1 H (5-15) BUN 6 L (7-18) mg/dL Creatinine 0.9 (0.55-1.02) mg/dL Est Cr Clr Drug Dosing 66.12 mL/min Estimated GFR (MDRD) > 60 (>60) mL/min BUN/Creatinine Ratio 6.7 L (14-18) Glucose 98 (74-106) mg/dL Calcium 9.6 (8.5-10.1) mg/dL Magnesium 2.1 (1.8-2.4) mg/dl Total Bilirubin 0.3 (0.2-1.0) mg/dL AST 31 (15-37) U/L ALT 67 H (14-59) U/L Alkaline Phosphatase 58 (46-116) U/L CK-MB (CK-2) < 0.5 (0-3.6) ng/ml Troponin I < 0.017 (0.00-0.056) ng/mL C-Reactive Protein 0.2 (<1.0) mg/dL NT-Pro-B Natriuret Pep (0-125) pg/mL Total Protein 7.9 (6.4-8.2) g/dl Albumin 4.1 (3.4-5.0) g/dl Globulin 3.8 gm/dL Albumin/Globulin Ratio 1.1 (1-2) Urine Color (Yellow) Urine Appearance (Clear) Urine pH (5.0-8.0) Ur Specific Cordell (1.005-1.030) Urine Protein (Negative) Urine Glucose (UA) (Negative) Urine Ketones (Negative) Urine Occult Blood (Negative) Urine Nitrite (Negative) Urine Bilirubin (Negative) Urine Urobilinogen (0.2-1.0) Ur Leukocyte Esterase (Negative) Urine RBC (0-5) /hpf Urine WBC (0-5) /hpf Ur Squamous Epith Cells (0-5) /hpf Urine Bacteria (FEW) /hpf Urine Mucus (FEW) /hpf 04/20/20 04/20/20 Range/Units 16:58 17:45 WBC (3.98-10.04) K/mm3 RBC (3.98-5.22) M/mm3 Hgb (11.2-15.7) gm/dl Hct (34.1-44.9) % MCV (79.4-94.8) fl MCH (25.6-32.2) pg MCHC (32.2-35.5) g/dl RDW Std Deviation (36.4-46.3) fL Plt Count (182-369) K/mm3 MPV (9.4-12.3) fl Neut % (Auto) (34.0-71.1) % Lymph % (Auto) (19.3-51.7) % Wirt % (Auto) (4.7-12.5) % Eos % (Auto) (0.7-5.8) Baso % (Auto) (0.1-1.2) % Neut # (Auto) (1.56-6.13) K/mm3 Lymph # (Auto) (1.18-3.74) K/mm3 Wirt # (Auto) (0.24-0.36) K/mm3 Eos # (Auto) (0.04-0.36) K/mm3 Baso # (Auto) (0.01-0.08) K/mm3 PT (9.7-12.0) SECONDS INR APTT (21.7-31.4) SECONDS D-Dimer, Quantitative (0.19-0.50) mg/L Sodium (136-145) mEq/L Potassium (3.5-5.1) mEq/L Chloride (98-107) mEq/L Carbon Dioxide (21-32) mEq/L Anion Gap (5-15) BUN (7-18) mg/dL Creatinine (0.55-1.02) mg/dL Est Cr Clr Drug Dosing mL/min Estimated GFR (MDRD) (>60) mL/min BUN/Creatinine Ratio (14-18) Glucose (74-106) mg/dL Calcium (8.5-10.1) mg/dL Magnesium (1.8-2.4) mg/dl Total Bilirubin (0.2-1.0) mg/dL AST (15-37) U/L ALT (14-59) U/L Alkaline Phosphatase (46-116) U/L CK-MB (CK-2) (0-3.6) ng/ml Troponin I (0.00-0.056) ng/mL C-Reactive Protein (<1.0) mg/dL NT-Pro-B Natriuret Pep 223 H (0-125) pg/mL Total Protein (6.4-8.2) g/dl Albumin (3.4-5.0) g/dl Globulin gm/dL Albumin/Globulin Ratio (1-2) Urine Color Light yellow (Yellow) Urine Appearance Slt cloudy H (Clear) Urine pH 7.5 (5.0-8.0) Ur Specific Cordell 1.015 (1.005-1.030) Urine Protein Negative (Negative) Urine Glucose (UA) Negative (Negative) Urine Ketones Negative (Negative) Urine Occult Blood Trace-lysed H (Negative) Urine Nitrite Negative (Negative) Urine Bilirubin Negative (Negative) Urine Urobilinogen 0.2 (0.2-1.0) Ur Leukocyte Esterase Negative (Negative) Urine RBC 0-5 (0-5) /hpf Urine WBC 0-5 (0-5) /hpf Ur Squamous Epith Cells 0-5 (0-5) /hpf Urine Bacteria Few (FEW) /hpf Urine Mucus Not seen (FEW) /hpf Meds: Medications Discontinued Medications Generic Name Dose Route Start Last Admin Trade Name Freq PRN Reason Stop Dose Admin Dextrose/Lactated Ringer's 1,000 mls @ 500 mls/hr 04/20/20 17:15 04/20/20 17:50 Dextrose 5%-Lactated Ringers IV 500 mls/hr ASDIRECTED RUDI Administration Potassium Chloride 10 meq/ 100 mls @ 100 mls/hr 04/20/20 18:30 04/20/20 20:10 Premix IV 04/20/20 20:29 100 mls/hr Q1H RUDI Administration Sodium Chloride 100 mls @ 60 mls/hr 04/20/20 18:30 04/20/20 18:48 Normal Saline IV 60 mls/hr ASDIRECTED RUDI Administration Sodium Chloride 1,000 mls @ 150 mls/hr 04/20/20 20:30 04/20/20 20:24 Normal Saline IV 150 mls/hr ASDIRECTED RUDI Administration Iopamidol 100 ml 04/20/20 18:26 04/20/20 18:48 Isovue-370 (76%) IVPUSH 04/20/20 18:27 100 ml ONETIME ONE Administration Sodium Chloride 10 ml 04/20/20 18:26 04/20/20 18:48 Saline Flush FLUSH 04/20/20 18:27 10 ml ONETIME ONE Administration - Radiology Interpretation Free Text/Narrative:: 54-year-old female presents to the ED with central chest discomfort that radiates up into her throat and perhaps mandible and across her chest into both upper extremities. She appears very anxious at the time of exam. She reports however that she has been on a prolonged course of progesterone over the last month due to severe menorrhagia. She was taken off this medication on Wednesday night April 17. She underwent D&C on April 18 as an outpatient with Dr. Bedoya. Her uterine bleeding has stopped since that time. Dr. Bedoya has told the patient that she likely requires a hysterectomy. Bleeding came partially under control with progesterone but never did quit completely. Dose of progesterone was increased for the last 5 days that she took it. Note she did have a COVID-19 screen that was negative prior to surgery on . - Re-Assessments/Exams Free Text/Narrative Re-Assessment/Exam: 04/20/20 17:58 White blood cell count is normal at 7.00. Differential shows 62% neutrophils on auto differential. Hemoglobin 12.3 with hematocrit of 38.5. MCV is 96.5. Platelet count is 347,000. PT is 10.6 with an INR of 0.99. PTT is 22.6. D-dimer is elevated at 4.15. Serum sodium is 138 with a low potassium of 3.1. Chloride is 101 with a bicarb of 24 anion gap is 16.1. BUN is 6 with a creatinine of 0.9. GFR is greater than 60. Glucose is 98 with a calcium of 9.6. Magnesium normal at 2.1. Bilirubin is 0.3 with an AST of 31 and ALT slightly elevated at 67. Alkaline phosphatase is normal at 58. CK-MB fraction is less than 0.5. Troponin I is less than 0.017. C-reactive protein 0.2. BNP is mildly elevated at 223. Elevated BNP is concerning for possible right heart strain from a PE. Total protein is 7.9. Albumin fraction is 4.1. 04/20/20 18:34 Urinalysis was slightly cloudy in appearance with a trace of lysed occult blood. Negative leukocyte esterase and no signs of infection on the micro. 04/20/20 18:52 CT pulmonary angiogram on my reading shows no evidence of pulmonary emboli. Cardiac silhouette is normal in size. The lung parenchyma is normal with no pneumothorax or infiltrates. Visualized portions of the abdomen show the liver to be mildly enlarged and perhaps fatty infiltrate. There is no intraductal dilatation. Gallbladder is absent. Pancreas appears normal. The spleen however shows multiple hyperdense areas of unclear etiology. Mild hiatal hernia with patulous distal esophagus appreciated. Left adrenal gland does appear mildly enlarged as well ie. incidentaloma. Will await the V rad over read. 04/20/20 19:00 V rad report is now available. Pulmonary arteries are normal with no pulmonary emboli. Aorta is unremarkable with no aortic aneurysm no aortic dissection. Lungs are unremarkable no consolidation no masses. Pleural space is unremarkable no pneumothorax no pleural effusion. Heart no cardiomegaly no pericardial effusion. Lymph nodes unremarkable no enlarged lymph nodes. Spleen there is a nodule in the left upper quadrant interposed between the spleen and the left kidney this likely represents a splenule as it is isoattenuating and isoenhancing relative to splenic parenchyma. Maximum dimension is approximately 2 cm. The visualized portions of the spleen are otherwise unremarkable. Bones are unremarkable with no fractures. 04/20/20 19:13 Patient appraised of the CT findings with no evidence of pulmonary embolism. I suspect her elevated D-dimer was due to recent D&C. She reports her bleeding per vagina is very minimal at this point time. I believe she is anticipating an abdominal hysterectomy in the near future. At this time is to give her 2 --10mEq potassium bags IV 1E or each hour and then allow her to go home. Patient reassured at length that she is quite anxious. Will order a KUB of her abdomen as I suspect she has some constipation issues particularly involving the right hemicolon. 04/20/20 19:45 KUB has been completed. It reveals a lot of gas distending most of the colon and small portions of the small bowel without any signs of bowel obstruction. Extra air in the intestinal tract is most likely from aerophagia. Patient reassured no signs of obstruction at this point time. She will continue her stool softeners on a daily basis to maintain regular bowel function. She will be discharged to home after second K rider has been infused. Large orders have been written. Departure - Departure Time of Disposition: 21:14 Disposition: Home, Self-Care 01 Reason for Transfer *Q: Other Condition: Fair Clinical Impression: Non-cardiac chest pain, Abdominal discomfort in right lower quadrant, Hypokalemia due to inadequate potassium intake Adverse effects of medication Qualifiers: Encounter type: initial encounter Qualified Code(s): T50.905A - Adverse effect of unspecified drugs, medicaments and biological substances, initial encounter Instructions: Abdominal Pain, Adult, Hypokalemia Referrals: Archie Bedoya MD [Primary Care Provider] - Forms: ED Department Discharge Additional Instructions: Evaluation in the emergency room today in regards to sick development of central chest discomfort rating up into your throat neck and across her upper chest into your arms. Vital signs were otherwise normal with O2 sats of 100%. There is no doubt that the chest discomfort created some degree of anxiety and worry. Heart tracing proved to be normal. Chest x-ray was normal as well. Lab test revealed an elevated D-dimer which is a test for clotting within your body. Therefore a CT pulmonary angiogram was done on your chest to rule out a blood clot in the lungs and no blood clots were identified on CT exam. Elevated D-dimer is most likely due to recent D&C with removal of tissue and clot from within the uterus. Persistent abdominal discomfort and bloat secondary to mild constipation on the right hemicolon. An x-ray of the abdomen revealed a lot of air throughout the large bowel and portions of the small bowel with no sign of any obstruction. I would advise continuing Colace twice daily until the bowels are regular. Lab test revealed low serum potassium level which may be contributing to nausea and muscle cramping. You were treated with potassium infusions of 10 mEq x 2 in the ED each over an hour to get your potassium up to close to normal. Once you are able to resume a regular diet your potassium will return to normal. Foods that are higher in potassium are things like oranges, grapefruit's, raisins and bananas etc. Follow-up with Dr. Bedoya next week as planned. Sepsis Event Note (ED) - Evaluation Sepsis Screening Result: No Definite Risk
[2020-04-20] MEDS ORDERED: Dextrose 5%-Lactated Ringers 1,000 ML IV SCH (17:15)
[2020-04-20] MEDS ORDERED: Sodium Chloride 0.9% 10 ML Syringe FLUSH ONE (18:26)
[2020-04-20] MEDS ORDERED: Iopamidol 755 Mg/ML 100 ML Bottle IVPUSH ONE (18:26)
[2020-04-20] MEDS ORDERED: Sodium Chloride 0.9% 100 ML IV SCH (18:30)
[2020-04-20] MEDS: Potassium Chloride 10 MEQ in Premix Bag 1 BAG IV SCH ×2 (19:01→20:10)
[2020-04-20] MEDS ORDERED: Sodium Chloride 0.9% 1,000 ML IV SCH (20:30)
--- NOTE | 2020-04-21 09:38 | CR ---
Chest: Portable view of the chest was obtained. Comparison: Prior chest x-ray of 11/10/19. Findings: Heart size and mediastinum are normal. Lungs are clear with no acute parenchymal change. Bony structures are grossly intact. Impression: 1. Nothing acute is seen on portable chest x-ray. Diagnostic code #1
--- NOTE | 2020-04-21 10:18 | CT ---
CT chest Technique: Multiple axial sections through the chest were obtained. Intravenous contrast was utilized. Study has been performed of the pulmonary angiogram protocol. Findings: Pulmonary arteries are well opacified. No filling defects are seen to indicate pulmonary embolism. Thoracic aorta shows no aneurysm. No mediastinal or hilar adenopathy is seen. No pericardial thickening is identified. Small portion of the visualized upper abdominal structures show no gross abnormality. Small accessory splenic tissue is noted medial to the spleen. No axillary adenopathy is appreciated. Lungs are clear with no acute parenchymal change. No pleural effusions are seen. There are slight areas of scarring noted within the left base. Bone window settings show nothing acute within the visualized osseous structures. Impression: 1. No findings of pulmonary embolism. 2. Other findings believed to be incidental as noted above. No other acute abnormality is appreciated. Diagnostic code #2 I agree with preliminary report from [facility], finalized on 04/20/20, 7:56 PM TELEPHONE CLERK
--- NOTE | 2020-04-21 10:21 | CR ---
Abdomen: Supine view of the abdomen was obtained. Comparison: Prior abdominal x-ray of 03/28/15. Scattered bowel gas pattern appears within normal limits. Contrast is noted within the bladder from CT chest study performed earlier on the same day. Surgical clips are seen from previous cholecystectomy. Bony structures are grossly intact. Impression: 1. Nothing acute is appreciated on supine abdominal x-ray. Diagnostic code #2
== END 2020-04-20 21:23 | disposition home or self-care (01) ==
LOC: JD.ED 16:49
DX: R07.89 Other chest pain (principal); R10.31 Right lower quadrant pain; E87.6 Hypokalemia; Z88.8 Allergy status to other drugs, medicaments and biological substances; Z88.5 Allergy status to narcotic agent; Z88.2 Allergy status to sulfonamides; Z88.1 Allergy status to other antibiotic agents; Z79.899 Other long term (current) drug therapy; T38.5X5A Adverse effect of other estrogens and progestogens, initial encounter
CPT/HCPCS: 36415; 71045; 71275; 74018; 80053; 81001; 82553; 83735; 83880; 84484; 85025; 85379; 85610; 85730; 86140; 96365; 96366; 99285; J3480; J7030; J7121; Q9967; 93010; 99284

== ENCOUNTER 2020-05-03 06:41 | Day surgery (SDC) | payer BC ==
[~2020-05-03 06:41] MED LIST changes: -Acetaminophen/HYDROcodone 325-5 MG Tab PO PRN; -Bupivacaine 0.5%/EPINEPHrine 1:200,000 50 ML MDV ONE; -HYDROmorphone 0.5 MG/0.5 ML Syringe ONE; -Ketorolac 30 MG/ML SDV ONE; -Lactated Ringers 1,000 ML ONE; -Lidocaine 1% 6 ML ONE; -Lidocaine 1% with EPINEPHrine 1:100,000 20 ML MDV ONE; -Midazolam 1 MG/ML 2 ML SDV ONE; -Ondansetron 4 MG/2 ML SDV ONE; -Propofol 200 MG/20 ML SDV ONE; -Rocuronium 50 MG/5 ML Vial ONE; -Succinylcholine/Sod PF 100 MG/5 ML SYRINGE IV ONE; -ceFAZolin 1 GM Vial ONE; -diphenhydrAMINE 50 MG/ML SDV ONE; -fentaNYL 100 MCG/2 ML SDV IVPUSH PRN; -fentaNYL 250 MCG/5 ML SDV ONE
[2020-05-03] MEDS ORDERED: Sodium Chloride 0.9% 50 ML SDV ONE (07:10)
[2020-05-03] MEDS ORDERED: Lidocaine 1% with EPINEPHrine 1:100,000 20 ML MDV ONE (07:10)
--- NOTE | 2020-05-03 07:32 | PCM.PREANE ---
Preanesthetic Assessment - Procedure Proposed Procedure: Total Vaginal Hysterectomy - Anesthesia/Transfusion/Family Hx Anesthesia History: Prior Anesthesia Without Reaction Family History of Anesthesia Reaction: No Transfusion History: No Prior Transfusion(s) Intubation History: Unknown - Review of Systems General: No Symptoms Pulmonary: No Symptoms Cardiovascular: No Symptoms, Other (PVCs ) Gastrointestinal: No Symptoms Neurological: No Symptoms Other: Reports: None - Physical Assessment NPO Status Date: 05/02/20 NPO Status Time: 19:00 Vital Signs: 143/61 67 98 16 Height: 1.68 m Weight: 69 kg ASA Class: 2 Mental Status: Alert & Oriented x3 Airway Class: Mallampati = 2 Dentition: Reports: Normal Dentition Thyro-Mental Finger Breadths: 2 Mouth Opening Finger Breadths: 4 ROM/Head Extension: Full Lungs: Clear to Auscultation, Normal Respiratory Effort Cardiovascular: Regular Rate, Regular Rhythm - Lab Values: reviewed - Allergies Allergies/Adverse Reactions: Allergies Allergy/AdvReac Type Severity Reaction Status Date / Time esomeprazole magnesium Allergy Severe Swollen Verified 05/01/20 15:00 [From Nexium] Tongue hydrocodone Allergy Severe Shortness Verified 05/01/20 15:00 of Breath Progestins Allergy Severe Other Verified 05/01/20 15:00 sulfamethoxazole Allergy Severe Swollen Verified 05/01/20 15:00 [From Bactrim] Tongue trimethoprim [From Bactrim] Allergy Severe Swollen Verified 05/01/20 15:00 Tongue ciprofloxacin [From Cipro] AdvReac Severe Headache Verified 05/01/20 15:00 - Blood Blood Available: No - Anesthesia Plan Pre-Op Medication Ordered: None - Acknowledgements Anesthesia Type Planned: General Anesthesia Pt an Appropriate Candidate for the Planned Anesthesia: Yes Alternatives and Risks of Anesthesia Discussed w Pt/Guardian: Yes Pt/Guardian Understands and Agrees with Anesthesia Plan: Yes PreAnesthesia Questionnaire - Past Health History Medical/Surgical History: Denies Medical/Surgical History HEENT History: Reports: Cataract, Impaired Vision, Other (See Below) Other HEENT History: wears glasse Cardiovascular History: Reports: High Cholesterol Other Cardiovascular History: hypotension, palpatations, preventricular contractions, irregular HR Respiratory History: Reports: None Gastrointestinal History: Reports: GERD, PUD Other Gastrointestinal History: Gallbladder attacks Genitourinary History: Reports: Urinary Incontinence, Other (See Below) Other Genitourinary History: ovarian cyst 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 When she stopped it her bleeding returned. She is was therefore placed on double dose for 5 days which she found intolerable due to cramping and diffuse aching in her bones. The last dose was taken on the evening of April 17. On [facility] er 24 she underwent a D&C by Dr. Bedoya WEB ANALYTICS DEVELOPER and bleeding has stopped. A hysterectomy has been recommended. Musculoskeletal History: Reports: Arthritis Neurological History: Reports: Migraines Psychiatric History: Reports: None Endocrine/Metabolic History: Reports: Hypothyroidism Hematologic History: Reports: Anemia, Other (See Below) Other Hematologic History: hypokalemia Immunologic History: Reports: Other (See Below) Other Immunologic History: Cathi Pearson Infection, reports was diagnosed 20years ago. Oncologic (Cancer) History: Reports: None Dermatologic History: Reports: None - Past Surgical History Head Surgeries/Procedures: Reports: None Cardiovascular Surgical History: Reports: None Respiratory Surgical History: Reports: None GI Surgical History: Reports: Cholecystectomy, EGD Female Surgical History: Reports: D&C Endocrine Surgical History: Reports: None Neurological Surgical History: Reports: None Musculoskeletal Surgical History: Reports: None Dermatological Surgical History: Reports: None - History Comment History Comment: off k+ - SUBSTANCE USE Tobacco Use Status *Q: Former Tobacco User Recreational Drug Use History: No - HOME MEDS Home Medications: Home Meds Calcium Carb/Vitamin D3/Vit K1 [Calcium + D Soft Chewable Tab] 1 tab PO DAILY 05/01/20 [History] Ferrous Sulfate [Iron] 325 mg PO DAILY 05/01/20 [History] Fish Oil/[place]-3 Fatty Acids [Fish Oil 1,000 MG] 1 gm PO DAILY 05/01/20 [History] Magnesium Oxide 500 mg PO DAILY 05/01/20 [History] Multivitamin 1 tab PO DAILY 05/01/20 [History] - CURRENT (IN HOUSE) MEDS Current Meds: Current Medications Lactated Ringer's (Ringers, Lactated) 1,000 mls @ 125 mls/hr IV ASDIRECTED RUDI Stop: 05/03/20 23:00 Lidocaine/Sodium Bicarbonate (Buffered Lidocaine 1% In Ns 8.4%) 0.25 ml IDERM ONETIME PRN PRN Reason: Prior to IV Start Stop: 05/03/20 18:00 Sodium Chloride (Saline Flush) 10 ml FLUSH ASDIRECTED PRN PRN Reason: Keep Vein Open Stop: 05/03/20 18:00 Discontinued Medications Lidocaine/Epinephrine (Xylocaine 1% With Epinephrine 1:100,000) Confirm Administered Dose 20 ml .ROUTE .STK-MED ONE Stop: 05/03/20 07:11 Sodium Chloride (Normal Saline) Confirm Administered Dose 50 ml .ROUTE .STK-MED ONE Stop: 05/03/20 07:11
[2020-05-03] MEDS ORDERED: fentaNYL 250 MCG/5 ML SDV ONE (07:42)
[2020-05-03] MEDS ORDERED: Propofol 200 MG/20 ML SDV ONE (07:42)
[2020-05-03] MEDS ORDERED: Midazolam 1 MG/ML 2 ML SDV ONE (07:42)
[2020-05-03] MEDS ORDERED: Lidocaine 1% 4 ML ONE (07:42)
[2020-05-03] MEDS ORDERED: ceFAZolin 1 GM Vial ONE (07:47)
[2020-05-03] MEDS ORDERED: Rocuronium 50 MG/5 ML Vial ONE (07:49)
[2020-05-03] MEDS ORDERED: Ondansetron 4 MG/2 ML SDV ONE (08:22)
[2020-05-03] MEDS ORDERED: Dexamethasone 4 MG/ML 5 ML MDV ONE (08:22)
[2020-05-03] MEDS ORDERED: Ketamine 500 mg/10 ML MDV ONE (08:22)
[2020-05-03] MEDS ORDERED: Ketorolac 30 MG/ML SDV ONE (08:22)
[2020-05-03] MEDS ORDERED: Scopolamine 1.5 MG Transdermal Patch TRDERM ONE (08:30)
[2020-05-03] MEDS ORDERED: Ibuprofen 600 MG Tab PO PRN (09:06)
[2020-05-03] MEDS ORDERED: traMADol 50 MG Tab PO PRN (09:07)
[2020-05-03] MEDS ORDERED: Ondansetron 4 MG/2 ML SDV IVPUSH PRN ×2 (09:08→09:14)
--- NOTE | 2020-05-03 09:13 | PCM.POSTAN ---
POST ANESTHESIA ASSESSMENT - MENTAL STATUS Mental Status: Somnolent - VITAL SIGNS Vital Signs: 0903 141/78 100 72 12 96.8 Last Vital Signs Temp 36.6 C 05/03/20 06:50 Pulse 67 05/03/20 06:50 Resp 16 05/03/20 06:50 BP 139/81 05/03/20 06:50 Pulse Ox 98 05/03/20 06:50 - RESPIRATORY Respiratory Status: Respiratory Rate WNL, Airway Patent, O2 Saturation Stable, Supplemental Oxygen - CARDIOVASCULAR CV Status: Pulse Rate WNL, Blood Pressure Stable - GASTROINTESTINAL GI Status: No Symptoms - PAIN Pain Score: 0 - POST OP HYDRATION Hydration Status: Adequate & Stable
[2020-05-03] MEDS ORDERED: fentaNYL 100 MCG/2 ML SDV IVPUSH PRN (09:14)
[2020-05-03] MEDS ORDERED: diphenhydrAMINE 50 MG/ML SDV IVPUSH PRN (09:14)
[2020-05-03] MEDS ORDERED: HYDROmorphone 0.5 MG/0.5 ML Syringe IVPUSH PRN (09:19)
--- NOTE | 2020-05-03 09:19 | PCM.OPNOTE ---
- General Post-Op/Procedure Note Date of Surgery/Procedure: 05/03/20 Operative Procedure(s): Total vaginal hysterectomy with bilateral salpingectomy Findings: Uterus was mildly enlarged. Fallopian tubes and ovaries were normal in appearance and consistent with age. Patient has a grade 2 cystocele and a grade 2 rectocele with a gaping introitus. There was grade 1-2 uterine descensus. Pre Op Diagnosis: Perimenopausal abnormal uterine bleeding Post-Op Diagnosis: Same Anesthesia Technique: General ET Tube Other Anesthesia Type: Lidocaine quarter percent with [id number] cclocal Primary Surgeon: Archie Bedoya Secondary Surgeon: Romario Guzman Anesthesia Provider: Izzy Alicia Hat Finishing Materials Preparer: Pao Hancock Reason Hat Finishing Materials Preparer Was Necessary: Retraction, assistance, patient safety, quality of care. Pathology: Uterus, bilateral fallopian tubes in one specimen container Fluid Replacement, Intraop: 1,000 EBL in mLs: 15 Complications: None Condition: Good Free Text/Narrative:: Surgery patient: 34 minutes Procedure: The patient was placed in supine position on the operating table. General endotracheal anesthesia was accomplished. After positioning, and adequate prep and drape, the procedure was then performed. Sterile speculum was placed in the vagina and cervix was visualized. Cervix was injected with lidocaine quarter percent with epinephrine-20 mL used. A full circumference incision was made in the cervical epithelium. The bladder was pushed well back off cervix. Posterior cul-de-sac was then entered sharply without problems. Left uterosacral was crossclamped with a Enseal vessel closure system. The left uterosacral and then the right uterosacral ligament pedicles were developed using the Enseal system. The anterior cul-de-sac was then entered without problems and the uterine vasculature, cardinal ligament and broad ligament then developed using Enseal vessel closure system. The uterus was inverted at this time and upper broad ligament fallopian tube pedicles were crossclamped with Ashley clamps. Specimen was totally removed. Both these pedicles were then secured with a Ashley stitch of #1 Vicryl. Left and right fallopian tube was normal in appearance.. Using Enseal vessel closure system each of the tubes was then removed and sent with the specimen. The patient was found to be hemostatically intact at this time. Modified Moschcowitz stitch was placed incorporating the uterosacral ligaments into the angle of the vagina and closing the posterior aspect of the cul-de-sac. The vaginal cuff was sutured for hemostatic reasons with a running locked suture of 0 Monocryl from the 2 o'clock position to the 10 o'clock position posteriorly. Vaginal cuff was then closed from left to right side with a running locked suture of 0 Monocryl. Patient was returned to supine position and awakened from general endotracheal anesthesia. She tolerated the procedure and left the opera ting room in satisfactory condition.
--- NOTE | 2020-05-03 10:16 | PCM48HPAN ---
Post Anesthesia Note - EVALUATION WITHIN 48HRS OF ANESTHETIC Vital Signs in Normal Range: Yes Patient Participated in Evaluation: Yes Respiratory Function Stable: Yes Airway Patent: Yes Cardiovascular Function Stable: Yes Hydration Status Stable: Yes Pain Control Satisfactory: Yes Nausea and Vomiting Control Satisfactory: Yes Mental Status Recovered: Yes Vital Signs: Last Vital Signs Temp 36.0 C L 05/03/20 09:03 Pulse 72 05/03/20 09:03 Resp 12 05/03/20 09:03 BP 141/78 H 05/03/20 09:03 Pulse Ox 100 05/03/20 09:09
[2020-05-03] MEDS ORDERED: HYDROmorphone 0.5 MG/0.5 ML Syringe IVPUSH SCH (10:37)
[2020-05-03 13:54] VITALS: BP 143/81; PULSE 90
== END 2020-05-03 13:05 | disposition home or self-care (01) ==
LOC: JD.SDS 06:41
PROVIDERS: ATTEND Obstetrics & Gynecology
DX: D25.2 Subserosal leiomyoma of uterus (principal); N83.8 Other noninflammatory disorders of ovary, fallopian tube and broad ligament; N80.0 Endometriosis of uterus; K21.9 Gastro-esophageal reflux disease without esophagitis; G43.909 Migraine, unspecified, not intractable, without status migrainosus; I47.2 Ventricular tachycardia; E78.00 Pure hypercholesterolemia, unspecified; Z88.1 Allergy status to other antibiotic agents; Z88.5 Allergy status to narcotic agent; Z90.49 Acquired absence of other specified parts of digestive tract; Z87.891 Personal history of nicotine dependence; Z88.2 Allergy status to sulfonamides
CPT/HCPCS: 36415; 58262; 86850; 86900; 86901; A9270; J0690; J1100; J1170; J1885; J2001; J2250; J2405; J2704; J2710; J3010; J7120; 00944

== ENCOUNTER 2021-02-23 07:40 | Emergency (ER) | payer BC ==
--- NOTE | 2021-02-23 08:52 | CR ---
Chest: Portable view of the chest was obtained. Comparison: Prior chest x-ray of 04/20/[address] of 04/20/20. Heart size and mediastinum are within normal limits. Slight patchy density is noted within the lateral left chest. Right lung appears to be clear by chest x-ray. Bony structures show nothing acute. Impression: 1. Slight increasing density within the lateral left chest from prior study. Please exclude Covid pneumonia as an etiology. Diagnostic code #3
--- NOTE | 2021-02-23 08:52 | EDM.PDOC ---
ED HPI GENERAL MEDICAL PROBLEM - General Chief Complaint: Gastrointestinal Problem Stated Complaint: DIARRHEA/WEAK Time Seen by Provider: 02/23/21 08:29 Source of Information: Reports: Patient, RN Notes Reviewed - History of Present Illness INITIAL COMMENTS - FREE TEXT/NARRATIVE: 55 yr old female became ill about 10 days ago, tested positive for covid about 8 days ago. Coughing but not short of breath. Has had a lot of nausea, diarrhea, GERD, difficulty sleeping, [place], myalgias. Has not been vaccinated. Generalized Pain Score (Numeric/FACES): 10 - Related Data Allergies Allergy/AdvReac Type Severity Reaction Status Date / Time esomeprazole magnesium Allergy Severe Swollen Verified 02/23/21 07:58 [From Nexium] Tongue hydrocodone Allergy Severe Shortness Verified 02/23/21 07:58 of Breath sulfamethoxazole Allergy Severe Swollen Verified 02/23/21 07:58 [From Bactrim] Tongue trimethoprim [From Bactrim] Allergy Severe Swollen Verified 02/23/21 07:58 Tongue Progestins Allergy Unknown Other Verified 02/23/21 07:58 ciprofloxacin [From Cipro] AdvReac Mild Headache Verified 02/23/21 07:58 Home Meds: Home Meds Calcium Carb/Vitamin D3/Vit K1 [Calcium + D Soft Chewable Tab] 1 tab PO DAILY 05/01/20 [History] Fish Oil/[place]-3 Fatty Acids [Fish Oil 1,000 MG] 1 gm PO DAILY 05/01/20 [History] Magnesium Oxide 500 mg PO DAILY 05/01/20 [History] Multivitamin 1 tab PO DAILY 05/01/20 [History] Doxylamine Succinate [Unisom] 25 mg PO ASDIRECTED PRN 05/03/20 [History] Ibuprofen [Motrin] 600 mg PO Q4H PRN tablet 05/03/20 [Rx] Kelp 1 tab PO DAILY 05/03/20 [History] Orphenadrine Citrate [Orphenadrine Citrate ER] 1 tab PO ASDIRECTED PRN 05/03/20 [History] Tryptophan [l-Tryptophan] 1 tab PO DAILY 05/03/20 [History] LORazepam [Ativan] 0.5 mg PO BEDTIME #10 tab 02/23/21 [Rx] Omeprazole 40 mg PO DAILY #20 capsule.dr 02/23/21 [Rx] Ondansetron [Zofran ODT] 4 mg PO Q8HR PRN #7 tab.dis 02/23/21 [Rx] Past Medical History - Past Health History Medical/Surgical History: Denies Medical/Surgical History HEENT History: Reports: Cataract, Impaired Vision, Other (See Below) Other HEENT History: wears glasse Cardiovascular History: Reports: High Cholesterol Other Cardiovascular History: hypotension, palpatations, preventricular contractions, irregular HR Respiratory History: Reports: None Gastrointestinal History: Reports: GERD, PUD Other Gastrointestinal History: Gallbladder attacks Genitourinary History: Reports: Urinary Incontinence, Other (See Below) Other Genitourinary History: ovarian cyst EXTRAS CASTING DIRECTOR History: Reports: Other EXTRAS CASTING DIRECTOR History: Patient has been having postmenopausal bleeding since latter part of February she reports heavy flow per vagina for 3 weeks before consulting EXTRAS CASTING DIRECTOR She was placed on a 14-day course of progesterone which did bring the bleeding under some degree of control but never quit completely. When she stopped it her bleeding returned. She is was therefore placed on double dose for 5 days which she found intolerable due to cramping and diffuse aching in her bones. The last dose was taken on the evening of April 17. On April 18 she underwent a D&C by Dr. Bedoya EXTRAS CASTING DIRECTOR and bleeding has stopped. A hysterectomy has been recommended. Musculoskeletal History: Reports: Arthritis Neurological History: Reports: Migraines Psychiatric History: Reports: None Endocrine/Metabolic History: Reports: Hypothyroidism Hematologic History: Reports: Anemia, Other (See Below) Other Hematologic History: hypokalemia Immunologic History: Reports: Other (See Below) Other Immunologic History: Cathi Pearson Infection, reports was diagnosed 20years ago. Oncologic (Cancer) History: Reports: None Dermatologic History: Reports: None - Infectious Disease History Infectious Disease History: Reports: Chicken Pox, Novel Coronavirus, Other (See Below) Other Infectious Disease History: Cathi-D[place] - Past Surgical History Head Surgeries/Procedures: Reports: None GI Surgical History: Reports: Cholecystectomy, EGD Female Surgical History: Reports: D&C Neurological Surgical History: Reports: None Dermatological Surgical History: Reports: None - History Comment History Comment: off k+ Social & Family History - Family History Family Medical History: No Pertinent Family History - Tobacco Use Tobacco Use Status *Q: Never Tobacco User Second Hand Smoke Exposure: No - Caffeine Use Caffeine Use: Reports: None Caffeine Use Comment: reports minimal coffee drinking since August 2019 - Recreational Drug Use Recreational Drug Use: No - Living Situation & Occupation Living situation: Reports: , with Spouse, with Family (5 kids) Occupation: Unemployed ED ROS GENERAL - Review of Systems Review Of Systems: See Below Constitutional: Reports: Fever, Chills, Decreased Appetite HEENT: Denies: Rhinitis, Throat Pain Respiratory: Reports: Cough. Denies: Shortness of Breath, Wheezing Cardiovascular: Denies: Chest Pain Endocrine: Reports: Fatigue GI/Abdominal: Reports: Diarrhea, Decreased Appetite, Nausea Musculoskeletal: Reports: Muscle Pain Skin: Denies: Rash Neurological: Reports: Dizziness, Headache ED EXAM, GENERAL - Physical Exam Exam: See Below General Appearance: Alert, No Apparent Distress Head: Atraumatic Neck: Supple Respiratory/Chest: No Respiratory Distress, Lungs Clear, Normal Breath Sounds. No: Respiratory Distress, Rhonchi, Wheezing Cardiovascular: Regular Rate, Rhythm Extremities: Normal Inspection. No: Leg Pain, Increased Warmth, Redness Neurological: Alert, Oriented, No Motor/Sensory Deficits Skin Exam: Warm, Dry, Normal Color Course - Vital Signs Last Recorded V/S: Last Vital Signs Temp 97.6 F 02/23/21 07:55 Pulse 88 02/23/21 07:55 Resp 16 02/23/21 07:55 BP 151/83 H 02/23/21 07:55 Pulse Ox 97 02/23/21 07:55 - Orders/Labs/Meds Orders: Active Orders 24 hr Category Date Time Status Peripheral IV Care [RC] . DIRECTED Care 02/23/21 09:07 Active Sodium Chloride 0.9% [Normal Saline] 1,000 ml Med 02/23/21 09:15 Active IV ONETIME Sodium Chloride 0.9% [Saline Flush] Med 02/23/21 09:07 Active 10 ml FLUSH ASDIRECTED PRN Peripheral IV Insertion Adult [OM.PC] Stat Oth 02/23/21 09:07 Ordered Medication Orders Sodium Chloride (Normal Saline) 1,000 mls @ 999 mls/hr IV ONETIME RUDI Last Admin: 02/23/21 10:02 Dose: 999 mls/hr Documented by: BALTA Sodium Chloride (Sodium Chloride 0.9% 10 Ml Syringe) 10 ml FLUSH ASDIRECTED PRN PRN Reason: Keep Vein Open Last Admin: 10/31/21 10:01 Dose: 10 ml Documented by: BALTA Labs: Laboratory Tests 02/23/21 02/23/21 02/23/21 Range/Units 07:55 08:25 10:00 WBC 4.95 (3.98-10.04) K/mm3 RBC 4.56 (3.98-5.22) M/mm3 Hgb 14.1 D (11.2-15.7) gm/dl Hct 42.3 (34.1-44.9) % MCV 92.8 D (79.4-94.8) fl MCH 30.9 (25.6-32.2) pg MCHC 33.3 (32.2-35.5) g/dl RDW Std Deviation 41.2 (36.4-46.3) fL Plt Count 219 D (182-369) K/mm3 MPV 9.7 (9.4-12.3) fl Neut % (Auto) 65.7 (34.0-71.1) % Lymph % (Auto) 21.4 (19.3-51.7) % [place] % (Auto) 11.9 (4.7-12.5) % Eos % (Auto) 0.4 L (0.7-5.8) Baso % (Auto) 0.4 (0.1-1.2) % Neut # (Auto) 3.25 (1.56-6.13) K/mm3 Lymph # (Auto) 1.06 L (1.18-3.74) K/mm3 [place] # (Auto) 0.59 H (0.24-0.36) K/mm3 Eos # (Auto) 0.02 L (0.04-0.36) K/mm3 Baso # (Auto) 0.02 (0.01-0.08) K/mm3 Sodium (136-145) mEq/L Potassium (3.5-5.1) mEq/L Chloride (98-107) mEq/L Carbon Dioxide (21-32) mEq/L Anion Gap (5-15) BUN (7-18) mg/dL Creatinine (0.55-1.02) mg/dL Est Cr Clr Drug Dosing mL/min Estimated GFR (MDRD) (>60) mL/min BUN/Creatinine Ratio (14-18) Glucose (70-99) mg/dL Calcium (8.5-10.1) mg/dL Total Bilirubin (0.2-1.0) mg/dL AST (15-37) U/L ALT (14-59) U/L Alkaline Phosphatase (46-116) U/L Total Protein (6.4-8.2) g/dl Albumin (3.4-5.0) g/dl Globulin gm/dL Albumin/Globulin Ratio (1-2) Urine Color Yellow (Yellow) Urine Appearance Clear (Clear) Urine pH 7.0 (5.0-8.0) Ur Specific Busy 1.015 (1.005-1.030) Urine Protein Negative (Negative) Urine Glucose (UA) Negative (Negative) Urine Ketones Negative (Negative) Urine Occult Blood Trace-lysed H (Negative) Urine Nitrite Negative (Negative) Urine Bilirubin Negative (Negative) Urine Urobilinogen 0.2 (0.2-1.0) Ur Leukocyte Esterase Negative (Negative) Urine RBC Not seen (0-5) /hpf Urine WBC 0-5 (0-5) /hpf Ur Epithelial Cells 0-5 (0-5) /hpf Urine Bacteria Few (FEW) /hpf Urine Mucus Not seen (FEW) /hpf SARS-CoV-2 RNA (SHANNAN) Positive H (NEGATIVE) 02/23/21 Range/Units 10:00 WBC (3.98-10.04) K/mm3 RBC (3.98-5.22) M/mm3 Hgb (11.2-15.7) gm/dl Hct (34.1-44.9) % MCV (79.4-94.8) fl MCH (25.6-32.2) pg MCHC (32.2-35.5) g/dl RDW Std Deviation (36.4-46.3) fL Plt Count (182-369) K/mm3 MPV (9.4-12.3) fl Neut % (Auto) (34.0-71.1) % Lymph % (Auto) (19.3-51.7) % [place] % (Auto) (4.7-12.5) % Eos % (Auto) (0.7-5.8) Baso % (Auto) (0.1-1.2) % Neut # (Auto) (1.56-6.13) K/mm3 Lymph # (Auto) (1.18-3.74) K/mm3 [place] # (Auto) (0.24-0.36) K/mm3 Eos # (Auto) (0.04-0.36) K/mm3 Baso # (Auto) (0.01-0.08) K/mm3 Sodium 139 (136-145) mEq/L Potassium 3.9 (3.5-5.1) mEq/L Chloride 104 (98-107) mEq/L Carbon Dioxide 28 (21-32) mEq/L Anion Gap 10.9 (5-15) BUN 1 L (7-18) mg/dL Creatinine 0.7 (0.55-1.02) mg/dL Est Cr Clr Drug Dosing 84.01 mL/min Estimated GFR (MDRD) > 60 (>60) mL/min BUN/Creatinine Ratio 1.4 L (14-18) Glucose 106 H (70-99) mg/dL Calcium 8.7 (8.5-10.1) mg/dL Total Bilirubin 0.5 (0.2-1.0) mg/dL AST 16 (15-37) U/L ALT 25 (14-59) U/L Alkaline Phosphatase 84 (46-116) U/L Total Protein 7.5 (6.4-8.2) g/dl Albumin 3.7 (3.4-5.0) g/dl Globulin 3.8 gm/dL Albumin/Globulin Ratio 1.0 (1-2) Urine Color (Yellow) Urine Appearance (Clear) Urine pH (5.0-8.0) Ur Specific Busy (1.005-1.030) Urine Protein (Negative) Urine Glucose (UA) (Negative) Urine Ketones (Negative) Urine Occult Blood (Negative) Urine Nitrite (Negative) Urine Bilirubin (Negative) Urine Urobilinogen (0.2-1.0) Ur Leukocyte Esterase (Negative) Urine RBC (0-5) /hpf Urine WBC (0-5) /hpf Ur Epithelial Cells (0-5) /hpf Urine Bacteria (FEW) /hpf Urine Mucus (FEW) /hpf SARS-CoV-2 RNA (SHANNAN) (NEGATIVE) Meds: Medications Generic Name Dose Route Start Last Admin Trade Name Freq PRN Reason Stop Dose Admin Sodium Chloride 1,000 mls @ 999 mls/hr 02/23/21 09:15 02/23/21 10:02 Normal Saline IV 999 mls/hr ONETIME RUDI Administration Sodium Chloride 10 ml 02/23/21 09:07 02/23/21 10:01 Sodium Chloride 0.9% 10 Ml Syringe FLUSH 10 ml ASDIRECTED PRN Administration Keep Vein Open Discontinued Medications Generic Name Dose Route Start Last Admin Trade Name Freq PRN Reason Stop Dose Admin Famotidine 20 mg 02/23/21 11:23 02/23/21 11:38 Famotidine 20 Mg Tab PO 02/23/21 11:24 20 mg ONETIME ONE Administration Ondansetron HCl 4 mg 02/23/21 10:41 02/23/21 10:57 Ondansetron 4 Mg/2 Ml Sdv IVPUSH 02/23/21 10:42 4 mg ONETIME ONE Administration - Re-Assessments/Exams Free Text/Narrative Re-Assessment/Exam: 02/23/21 14:26 CXR normal, labs relatively normal. Sats 97 to 99 %. Have given IV fluid, meds, discharge instr. as documented. Departure - Departure Time of Disposition: 12:29 Disposition: Home, Self-Care 01 Condition: Fair Clinical Impression: COVID-19 virus infection, Diarrhea, GERD (gastroesophageal reflux disease), Insomnia - Discharge Information Prescriptions: LORazepam [Ativan] 0.5 mg PO BEDTIME #10 tab Omeprazole 40 mg PO DAILY #20 capsule. Ondansetron [Zofran ODT] 4 mg PO Q8HR PRN #7 tab.dis PRN Reason: Nausea/Vomiting Instructions: COVID-19 Frequently Asked Questions, What You Should Know About COVID-19 to Protect Yourself and Others - CDC, 10 Things You Can Do to Manage Your COVID-19 Symptoms at Home - CDC (11/08/2020), Gastroesophageal Reflux Disease, Adult, [id number], COVID-19: Quarantine vs. Isolation - CDC (04/11/2020), Diarrhea, Adult, [id number] Referrals: Frank hCi MD [Primary Care Provider] - Forms: ED Department Discharge Additional Instructions: Rest. Drink plenty of fluids to maintain hydration. Zofran 4 mg ODT q 8 to 12 hr if needed for nausea or vomiting. Omeprazole 40 mg q AM. Ativan 0.5 mg at bedtime to help you relax and sleep. Prescriptions have been sent to [facility]. Tylenol q 6 to 8 hr as needed. Follow up clinic if not much better within 5 to 7 days as expected. Return to ED as needed if symptoms worsening in any way. Sepsis Event Note (ED) - Evaluation Sepsis Screening Result: No Definite Risk - Focused Exam Vital Signs: Vital Signs Temp Pulse Resp BP Pulse Ox 02/23/21 07:55 97.6 F 88 16 151/83 H 97 - My Orders Last 24 Hours: My Active Orders 02/23/21 09:07 Peripheral IV Care [RC] . DIRECTED Sodium Chloride 0.9% [Saline Flush] 10 ml FLUSH ASDIRECTED PRN Peripheral IV Insertion Adult [OM.PC] Stat 02/23/21 09:15 Sodium Chloride 0.9% [Normal Saline] 1,000 ml IV ONETIME - Assessment/Plan Last 24 Hours: My Active Orders 02/23/21 09:07 Peripheral IV Care [RC] . DIRECTED Sodium Chloride 0.9% [Saline Flush] 10 ml FLUSH ASDIRECTED PRN Peripheral IV Insertion Adult [OM.PC] Stat 02/23/21 09:15 Sodium Chloride 0.9% [Normal Saline] 1,000 ml IV ONETIME
[2021-02-23] MEDS ORDERED: Sodium Chloride 0.9% 10 ML Syringe FLUSH PRN (09:07)
[2021-02-23] MEDS ORDERED: Sodium Chloride 0.9% 1,000 ML IV SCH (09:15)
[2021-02-23] MEDS ORDERED: Ondansetron 4 MG/2 ML SDV IVPUSH ONE (10:41)
[2021-02-23] MEDS ORDERED: Famotidine 20 MG Tab PO ONE (11:23)
[2021-02-23 17:03] VITALS: BP 138/80; PULSE 92
== END 2021-02-23 12:50 | disposition home or self-care (01) ==
LOC: JD.ED 07:40
DX: U07.1 COVID-19 (principal); K21.9 Gastro-esophageal reflux disease without esophagitis; G47.00 Insomnia, unspecified; Z88.8 Allergy status to other drugs, medicaments and biological substances; Z88.2 Allergy status to sulfonamides; Z88.1 Allergy status to other antibiotic agents; Z79.899 Other long term (current) drug therapy
CPT/HCPCS: 36415; 71045; 80053; 81001; 85025; 87635; 96374; 99283; A9270; J2405; J7030; U0002

== ENCOUNTER 2021-03-04 07:39 | Emergency (ER) | payer BC ==
[2021-03-04] MEDS ORDERED: Lactated Ringers 1,000 ML IV ONE (08:57)
[2021-03-04] MEDS ORDERED: Aluminum Hydroxide/Magnesium Hydroxide/Simethicone Susp 30 ML Cup PO ONE (08:57)
--- NOTE | 2021-03-04 09:27 | CR ---
Chest: Frontal view of the chest was obtained. Comparison: Prior chest x-ray of 02/23/21. Heart size and mediastinum are within normal limits. Previous densities within the left chest show improvement on current study. No acute parenchymal change is seen. Bony structures show nothing acute. Impression: 1. Near normal chest x-ray with improvement seen from prior chest x-ray. Diagnostic code #2
[2021-03-04] MEDS ORDERED: Ondansetron 4 MG/2 ML SDV IVPUSH ONE (10:04)
--- NOTE | 2021-03-04 10:19 | EDM.PDOC ---
ED HPI GENERAL MEDICAL PROBLEM - General Chief Complaint: Chest Pain Stated Complaint: CHEST PAIN Time Seen by Provider: 03/04/21 08:50 Source of Information: Reports: Patient History Limitations: Reports: No Limitations - History of Present Illness INITIAL COMMENTS - FREE TEXT/NARRATIVE: Patient is a 55-year-old female with a past medical history of recent Covid infection, peptic ulcer disease, prior cholecystectomy presenting with a chief complaint of chest pain and indigestion. Patient states she has had the symptoms for several weeks. Patient states that she has the symptoms consistently but seems to be worsened after meals. She reports feeling "indigestion.". She states the symptoms are associated with some mild nausea some belching and feeling like occasionally food gets "stuck". She denies any fevers, abdominal pain, constipation, obstipation. Patient had bowel movement yesterday which was reportedly normal. No blood in her stools. She has not seen a doctor previously about this. Patient has had endoscopy done many years ago. She reports this only showed some ulcers. Patient reports the chest pain is a tightness across the chest. It seems to be associated with GI symptoms. Denies any new or worsening shortness of breath. Symptoms do not change with exertion. Does not have any radiation to the neck or jaw or back. No prior history of DVT, PE or CO. Chest Pain Score (Numeric/FACES): 7 - Related Data Allergies Allergy/AdvReac Type Severity Reaction Status Date / Time esomeprazole magnesium Allergy Severe Swollen Verified 03/04/21 08:07 [From Nexium] Tongue hydrocodone Allergy Severe Shortness Verified 03/04/21 08:07 of Breath sulfamethoxazole Allergy Severe Swollen Verified 03/04/21 08:07 [From Bactrim] Tongue trimethoprim [From Bactrim] Allergy Severe Swollen Verified 03/04/21 08:07 Tongue Progestins Allergy Unknown Other Verified 03/04/21 08:07 ciprofloxacin [From Cipro] AdvReac Mild Headache Verified 03/04/21 08:07 Home Meds: Home Meds Calcium Carb/Vitamin D3/Vit K1 [Calcium + D Soft Chewable Tab] 1 tab PO DAILY 05/01/20 [History] Fish Oil/Morgan-3 Fatty Acids [Fish Oil 1,000 MG] 1 gm PO DAILY 05/01/20 [History] Magnesium Oxide 500 mg PO DAILY 05/01/20 [History] Multivitamin 1 tab PO DAILY 05/01/20 [History] Doxylamine Succinate [Unisom] 25 mg PO ASDIRECTED PRN 05/03/20 [History] Ibuprofen [Motrin] 600 mg PO Q4H PRN tablet 05/03/20 [Rx] Kelp 1 tab PO DAILY 05/03/20 [History] Orphenadrine Citrate [Orphenadrine Citrate ER] 1 tab PO ASDIRECTED PRN 05/03/20 [History] Tryptophan [l-Tryptophan] 1 tab PO DAILY 05/03/20 [History] LORazepam [Ativan] 0.5 mg PO BEDTIME #10 tab 02/23/21 [Rx] Omeprazole 40 mg PO DAILY #20 jason. 02/23/21 [Rx] Ondansetron [Zofran ODT] 4 mg PO Q8HR PRN #7 tab.dis 02/23/21 [Rx] Past Medical History - Past Health History Medical/Surgical History: Denies Medical/Surgical History HEENT History: Reports: Cataract, Impaired Vision, Other (See Below) Other HEENT History: wears glasse Cardiovascular History: Reports: High Cholesterol Other Cardiovascular History: hypotension, palpatations, preventricular contractions, irregular HR Respiratory History: Reports: Other (See Below) Other Respiratory History: +) COVID Gastrointestinal History: Reports: GERD, PUD Other Gastrointestinal History: Gallbladder attacks Genitourinary History: Reports: Urinary Incontinence, Other (See Below) Other Genitourinary History: ovarian cyst [employer] History: Reports: Other [employer] History: Patient has been having postmenopausal bleeding since latter part of February she reports heavy flow per vagina for 3 weeks before consulting [employer] She was placed on a 14-day course of progesterone which did bring the bleeding under some degree of control but never quit completely. When she stopped it her bleeding returned. She is was therefore placed on double dose for 5 days which she found intolerable due to cramping and diffuse aching in her bones. The last dose was taken on the evening of April 17. On April 18 she underwent a D&C by Dr. Bedoya [employer] and bleeding has stopped. A hysterectomy has been recommended. Musculoskeletal History: Reports: Arthritis Neurological History: Reports: Migraines Psychiatric History: Reports: None Endocrine/Metabolic History: Reports: Hypothyroidism Hematologic History: Reports: Anemia, Other (See Below) Other Hematologic History: hypokalemia Immunologic History: Reports: Other (See Below) Other Immunologic History: Cathi Pearson Infection, reports was diagnosed 20years ago. Oncologic (Cancer) History: Reports: None Dermatologic History: Reports: None - Infectious Disease History Infectious Disease History: Reports: Chicken Pox, Novel Coronavirus, Other (See Below) Other Infectious Disease History: Cathi-Dayton - Past Surgical History GI Surgical History: Reports: Cholecystectomy, EGD Female Surgical History: Reports: D&C - History Comment History Comment: off k+ Social & Family History - Family History Family Medical History: No Pertinent Family History - Tobacco Use Tobacco Use Status *Q: Never Tobacco User Second Hand Smoke Exposure: No - Caffeine Use Caffeine Use: Reports: None Caffeine Use Comment: reports minimal coffee drinking since August 2019 - Recreational Drug Use Recreational Drug Use: No - Living Situation & Occupation Living situation: Reports: , with Spouse, with Family (5 kids) Occupation: Unemployed ED ROS GENERAL - Review of Systems Review Of Systems: See Below Free Text/Narrative/Comment: In addition to that documented in the HPI above, the additional ROS was obtained: Constitutional: Denies fevers or chills Eyes: Denies vision changes ENMT: Denies sore throat CV: Per HPI Resp: Denies SOB GI: Denies vomiting or diarrhea : Denies painful urination MSK: Denies recent trauma Skin: Denies new rashes Neuro: Denies new numbness or tingling or weakness Endocrine: Denies unexpected weight loss Heme: Denies bleeding disorders ED EXAM, GI/ABD - Physical Exam Exam: See Below Text/Narrative:: I have reviewed the triage vital signs Const: Well nourished, well developed, appears stated age Eyes: Pupils Equal and reactive to light bilaterally, no conjunctival injection HENT: No signs of trauma or swelling, Neck supple without meningismus. Voice is normal. Tolerating oral secretions. CV: Regular Rate Rhythm, Warm, well-perfused extremities RESP: Unlabored respiratory effort GI: soft, non-tender, non-distended, no masses MSK: No gross deformities appreciated Skin: Warm, dry. No rashes Neuro: Alert, slab inspector II-XII grossly intact. Sensation and motor function of extremities grossly intact. Psych: Appropriate mood and affect. Course - Vital Signs Last Recorded V/S: Last Vital Signs Temp 36.5 C 03/04/21 07:45 Pulse 82 03/04/21 07:45 Resp 12 03/04/21 07:45 BP 147/81 H 03/04/21 07:45 Pulse Ox 100 03/04/21 07:45 - Orders/Labs/Meds Orders: Active Orders 24 hr Category Date Time Status Sodium Chloride 0.9% [Saline Flush] Med 03/04/21 10:30 Active 10 ml FLUSH ONETIME PRN Medication Orders Sodium Chloride (Sodium Chloride 0.9% 10 Ml Syringe) 10 ml FLUSH ONETIME PRN PRN Reason: IV FLUSH Last Admin: 03/04/21 11:04 Dose: 10 ml Documented by: SHANNAN Labs: Laboratory Tests 03/04/21 03/04/21 03/04/21 Range/Units 08:00 08:00 08:00 WBC 4.43 (3.98-10.04) K/mm3 RBC 4.62 (3.98-5.22) M/mm3 Hgb 14.3 (11.2-15.7) gm/dl Hct 43.0 (34.1-44.9) % MCV 93.1 (79.4-94.8) fl MCH 31.0 (25.6-32.2) pg MCHC 33.3 (32.2-35.5) g/dl RDW Std Deviation 41.5 (36.4-46.3) fL Plt Count 395 H D (182-369) K/mm3 MPV 9.4 (9.4-12.3) fl Neut % (Auto) 53.5 (34.0-71.1) % Lymph % (Auto) 34.8 (19.3-51.7) % Calhoun % (Auto) 10.4 (4.7-12.5) % Eos % (Auto) 0.9 (0.7-5.8) Baso % (Auto) 0.2 (0.1-1.2) % Neut # (Auto) 2.37 (1.56-6.13) K/mm3 Lymph # (Auto) 1.54 (1.18-3.74) K/mm3 Calhoun # (Auto) 0.46 H (0.24-0.36) K/mm3 Eos # (Auto) 0.04 (0.04-0.36) K/mm3 Baso # (Auto) 0.01 (0.01-0.08) K/mm3 PT 10.8 (9.7-12.0) SECONDS INR 0.97 Sodium 137 (136-145) mEq/L Potassium 3.7 (3.5-5.1) mEq/L Chloride 101 (98-107) mEq/L Carbon Dioxide 24 (21-32) mEq/L Anion Gap 15.7 H (5-15) BUN 3 L (7-18) mg/dL Creatinine 0.8 (0.55-1.02) mg/dL Est Cr Clr Drug Dosing 73.51 mL/min Estimated GFR (MDRD) > 60 (>60) mL/min BUN/Creatinine Ratio 3.8 L (14-18) Glucose 102 H (70-99) mg/dL Calcium 9.0 (8.5-10.1) mg/dL Total Bilirubin 0.6 (0.2-1.0) mg/dL AST 21 (15-37) U/L ALT 33 (14-59) U/L Alkaline Phosphatase 78 (46-116) U/L Troponin I < 0.017 (0.00-0.056) ng/mL Total Protein 7.8 (6.4-8.2) g/dl Albumin 4.1 (3.4-5.0) g/dl Globulin 3.7 gm/dL Albumin/Globulin Ratio 1.1 (1-2) Meds: Medications Generic Name Dose Route Start Last Admin Trade Name Freq PRN Reason Stop Dose Admin Sodium Chloride 10 ml 03/04/21 10:30 03/04/21 11:04 Sodium Chloride 0.9% 10 Ml Syringe FLUSH 10 ml ONETIME PRN Administration IV FLUSH Discontinued Medications Generic Name Dose Route Start Last Admin Trade Name Freq PRN Reason Stop Dose Admin Al Hydroxide/Mg Hydroxide 30 ml 03/04/21 08:57 03/04/21 09:17 Aluminum Hydroxide/Magnesium Hydroxide/Simethicone Susp 30 Ml Cup PO 03/04/21 08:58 30 ml ONETIME ONE Administration Diatrizoate Meglum/Diatrizoate Sod 120 ml 03/04/21 10:30 03/04/21 11:04 Diatrizoate Meglumine/Diatrizoate Sodium 37% 120 Ml Bottle PO 03/04/21 10:31 30 ml ONETIME ONE Administration Lactated Ringer's 1,000 mls @ 1,000 mls/hr 03/04/21 08:57 03/04/21 09:16 Ringers, Lactated IV 03/04/21 09:56 1,000 mls/hr .BOLUS ONE Administration Iopamidol 100 ml 03/04/21 10:30 03/04/21 11:04 Iopamidol 612 Mg/Ml 100 Ml Bottle IVPUSH 03/04/21 10:31 100 ml ONETIME ONE Administration Ondansetron HCl 4 mg 03/04/21 10:04 03/04/21 10:10 Ondansetron 4 Mg/2 Ml Sdv IVPUSH 03/04/21 10:05 4 mg ONETIME ONE Administration Departure - Departure Time of Disposition: 12:04 Disposition: Home, Self-Care 01 Clinical Impression: Dysphagia - Discharge Information Instructions: Dysphagia, Dysphagia Eating Plan, Pureed Referrals: Frank Chi MD [Primary Care Provider] - Forms: ED Department Discharge Sepsis Event Note (ED) - Evaluation Sepsis Screening Result: No Definite Risk - Focused Exam Vital Signs: Vital Signs Temp Pulse Resp BP Pulse Ox 03/04/21 07:45 36.5 C 82 12 147/81 H 100 - My Orders Last 24 Hours: My Active Orders 03/04/21 10:30 Sodium Chloride 0.9% [Saline Flush] 10 ml FLUSH ONETIME PRN - Assessment/Plan Last 24 Hours: My Active Orders 03/04/21 10:30 Sodium Chloride 0.9% [Saline Flush] 10 ml FLUSH ONETIME PRN Assessment:: Patient is a 55-year-old female presented to emergency room with chief complaint of aphasia. Patient had unremarkable ER course. Patient nontoxic in appearance and tolerating p.o. well in the emergency room. Differential diagnosis considered was broad including small bowel obstruction, Boerhaave syndrome, food bolus impaction, perforated peptic ulcer. Patient had laboratory studies and CT scan done. All these do not demonstrate any acute findings. At this point, patient will require further work-up but this can be done as an outpatient with an EGD. Patient instructed this and given appropriate return precautions. She was instructed to stay on a liquid diet until seen by GI. All questions were addressed and answered. Patient given appropriate return precautions. Discharged in stable condition.
[2021-03-04] MEDS ORDERED: Iopamidol 612 MG/ML 100 ML Bottle IVPUSH ONE (10:30)
[2021-03-04] MEDS ORDERED: Sodium Chloride 0.9% 10 ML Syringe FLUSH PRN (10:30)
[2021-03-04] MEDS ORDERED: Diatrizoate Meglumine/Diatrizoate Sodium 37% 120 ML Bottle PO ONE (10:30)
--- NOTE | 2021-03-04 11:32 | CT ---
CT abdomen and pelvis Technique: Multiple axial sections were obtained from above the dome of the diaphragm inferiorly through the pubic symphysis. Intravenous and oral contrast were utilized. Delayed images were obtained through the abdomen and pelvis. Reconstructed coronal and sagittal images were also obtained. Comparison: Prior CT abdomen and pelvis study of 04/02/15. Findings: Visualized lung bases show slight density within the left lung which could represent minimal pneumonia or areas of atelectasis depending on patient's symptoms. Three liver lesions are seen within the right lobe. These are felt to be fairly stable from prior exam compatible with benign lesions. Spleen size is normal. Accessory splenic tissue is noted posterior to the spleen. Nodule is noted within the left adrenal gland which is stable from prior CT exam measuring 1.1 cm in size and is believed to be benign. Right adrenal gland shows no nodule. Pancreas shows no abnormality. Surgical clips are seen from prior cholecystectomy. Kidneys show symmetric contrast enhancement with no hydronephrosis or mass being seen. Abdominal aorta shows no aneurysm. No retroperitoneal adenopathy or mesenteric abnormalities are seen. Appendix is seen which is normal in size. No pelvic mass or adenopathy is seen. No free fluid or inflammatory change is seen. Bowel appears normal in size. No bowel wall thickening is seen. Delayed images show contrast excreted from both kidneys. Contrast is noted within the ureters as well as within the bladder. Bone window settings were reviewed which show minimal degenerative change within the spine. No acute osseous abnormality is appreciated. Impression: 1. Several densities within the left lung base. Difficult to exclude pneumonia if patient has correlating symptoms. Findings are otherwise due to areas of atelectasis. 2. Other findings as described above which are believed to be stable from previous CT exam. 3. Nothing acute is otherwise appreciated on CT study of the abdomen and pelvis. Diagnostic code #2
[2021-03-04 12:35] VITALS: BP 151/74; PULSE 80
== END 2021-03-04 12:35 | disposition home or self-care (01) ==
LOC: JD.ED 07:39
DX: R13.10 Dysphagia, unspecified (principal); K21.9 Gastro-esophageal reflux disease without esophagitis; Z88.8 Allergy status to other drugs, medicaments and biological substances; Z88.5 Allergy status to narcotic agent; Z88.2 Allergy status to sulfonamides; Z88.1 Allergy status to other antibiotic agents; Z79.899 Other long term (current) drug therapy
CPT/HCPCS: 36415; 71045; 74177; 80053; 84484; 85025; 85610; 93005; 96374; 99285; A9270; J2405; J7120; Q9963; Q9967

== ENCOUNTER 2024-11-15 11:37 | Emergency (ER) | payer BC ==
[2024-11-15] MEDS ORDERED: Sodium Chloride 0.9% 10 ML Syringe FLUSH PRN (12:13)
[2024-11-15 12:32] LABS: BASOPHILS ABSOLUTE AUTO 0.0 K/mm3 (0.0-0.2); BASOPHILS PERCENT AUTO 0.8 % (0.0-1.0); EOSINOPHILS ABSOLUTE AUTO 0.0 K/mm3 (0.0-0.4); EOSINOPHILS PERCENT AUTO 0.5 % (0.0-6.0); IMMATURE GRAN ABSOLUTE AUTO 0.01 K/mm3 (0.00-0.05); IMMATURE GRAN PERCENT AUTO 0.3 % (0.0-0.4); LYMPHOCYTES ABSOLUTE AUTO 0.8 K/mm3 (1.0-4.8); LYMPHOCYTES PERCENT AUTO 19.8 % (24.0-44.0); MEAN PLATELET VOLUME 10.1 fl (9.4-12.3); MONOCYTES ABSOLUTE AUTO 0.6 K/mm3 (0.0-0.8); MONOCYTES PERCENT AUTO 15.6 % (0.0-8.0); NEUTROPHILS ABSOLUTE AUTO 2.4 K/mm3 (1.8-7.7); NEUTROPHILS PERCENT AUTO 63.0 % (41.0-71.0); NRBC ABSOLUTE 0.00 (0.00-0.02); NRBC PERCENT 0.0 % (0.0-0.2); PLATELET COUNT,PLT 208 K/mm3 (150-400); RED BLOOD CELL COUNT 4.62 M/mm3 (4.10-5.30); WHITE BLOOD CELL COUNT,WBC 3.84 K/mm3 (3.9-11.3)
[2024-11-15 12:51] LABS: A/G RATIO 1.0 (1-2); ALANINE AMINOTRANSFERASE,ALT 27.0 U/L (14-59); ASPARTATE AMNIOTRANSFERASE,AST 18.0 U/L (15-37); BILIRUBIN TOTAL 0.5 mg/dL (0.2-1.0); BLOOD UREA NITROGEN,BUN 9.0 mg/dL (7-18); CARBON DIOXIDE,CO2 27.0 mEq/L (21-32); CHLORIDE,CL 97.0 mEq/L (98-107); CREATININE 0.7 mg/dL (0.55-1.02); EST CRCL DRUG DOSING (CG) 80.01 mL/min; ESTIMATED GFR 99.0 mL/min (>60); GLUCOSE RANDOM 115.0 mg/dL (70-99); POTASSIUM,K 3.5 mEq/L (3.5-5.1); PROTEIN TOTAL,TP 7.5 g/dl (6.4-8.2); SODIUM,NA 134.0 mEq/L (136-145); TROPONIN I HIGH SENSITIVITY 9.0 pg/mL (<=51)
[2024-11-15 14:20] VITALS: BP 131/81; PULSE 80
== END 2024-11-15 14:25 | disposition home or self-care (01) ==
LOC: JD.ED 11:37
DX: R00.2 Palpitations (principal); R07.89 Other chest pain; E78.00 Pure hypercholesterolemia, unspecified; K21.9 Gastro-esophageal reflux disease without esophagitis; Z86.16 Personal history of COVID-19; Z90.49 Acquired absence of other specified parts of digestive tract; Z88.8 Allergy status to other drugs, medicaments and biological substances; Z88.2 Allergy status to sulfonamides; Z88.1 Allergy status to other antibiotic agents; Z79.899 Other long term (current) drug therapy
CPT/HCPCS: 36415; 71046; 71046-26; 80053; 83735; 84484; 85025; 85379; 86140; 93005; 93010; 99284; 99285